=== PATIENT | female | born 1945 | race Caucasian/White ===

== ENCOUNTER 2022-12-29 15:31 | Emergency (ER) | payer BC, OTHER ==
--- OUTSIDE RECORDS SUMMARY | 2022-12-29 15:34 | XMS REPORT | Clinical Summary ---
:1945 Author Organization [facility] Address [address] [place] [address] Care Team Providers Name Role Phone Steven Vickers MD Primary Care Provider Steven Vickers MD Unavailable Tai [employer] Unavailable Ruperto Mary MD Unavailable Tasha Slater MD Unavailable [phone] Allergies No known active allergies Medications Medication Sig Dispensed Refills Start Date End Date Status lisinopril Take 1 tablet 0 09/20/2022 Acti ve (PRINIVIL,ZESTRIL) 20 mg (20 mg) by tablet mouth daily. rosuvastatin (CRESTOR) 10 Take 1 tablet 0 08/21/2022 Active mg tablet (10 mg) by mouth daily. hydroCHLOROthiazide Take 1 tablet 0 07/04/2008 Active (HYDRODIURIL) 25 mg tablet (25 mg) by mouth daily. 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 10/05/2022 Orders Only Ophthalmology PathDeepti forbes PA 10/05/2022 Travel 10/02/2022 NPR Patient Access Steven Vickers Services MD 09/14/2022 Travel after 12/29/2021 Surgical History Surgery Date Site/Laterality Comments LASIK 07/30/1993 - 07/29/1994 Right Social History Tobacco Use Types Packs/Day Years Used Date Smoking Tobacco: Never Tobacco Cessation: Counseling Given: Not Answered Sex Assigned at Date Recorded Female 09/11/2022 12:47 PM [employer] Job Start Date Occupation Industry Not on file Not on file Not on file Obstetrics History Last Filed Vital Signs Vital Sign Reading Time Taken Comments Blood Pressure 146/77 10/05/2022 7:50 AM [employer] Pulse 105 10/05/2022 7:50 AM [employer] Temperature - - Respiratory Rate 18 10/05/2022 7:50 AM [employer] Oxygen Saturation 97% 10/05/2022 7:50 AM [employer] Inhaled Oxygen Concentration - - Weight 58 kg (127 lb 13.9 oz) 10/05/2022 7:44 AM [employer] Height 168 cm (5' 6.14") 10/05/2022 7:44 AM [employer] Body Mass Index 20.55 10/05/2022 7:44 AM [employer] Plan of Treatment Date Type Specialty Care Team Description 02/08/2023 Appointment Ophthalmology Steven Vickers MD [address] [place], [place] [address] (Wo rk) Health Maintenance Due Date Last Done Comments COVID-19 Vaccination (5 - Moderna 02/14/2022 12/20/2021, , series) 09/18/2020, Additional history exists Procedures Procedure Name Priority Date/Time Associated Comments Diagnosis [facility]BM/ANTERIOR SEGMENT Routine 10/05/2022 9:44 AM 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 B-SCAN ULTRASOUND - Routine 10/05/2022 9:34 AM Neoplasm of Re sults for this OS - LEFT EYE [employer] uncertain behavior procedur e are in of choroid the results section. FUNDUS PHOTOS - OU - Routine 10/05/2022 8:43 AM Nevus of choro id Results for this BOTH EYES [employer] <Left side> procedure are i n the results section. OCT, RETINA - OU - Routine 10/05/2022 8:43 AM Nevus of choroid Results for this BOTH EYES [employer] <Left side> procedure are i n the results section. after 12/29/2021 Results UBM/Anterior Segment - OS - Left Eye (10/05/2022 9:44 AM [employer]) Specimen (Source) Anatomical Location Collection Method / Collectio n Time Received Time / Laterality Volume Steven Mancilla MD - 10/05/2022 9:44 AM [employer] Quality was good. Structures assessed: cornea, iris, angle, ciliary body, pars plana. Anterior chamber was normal. Findings included normal observations. Notes No ciliary body or iris mass Steven Vickers MD OPHTHALMOLOGY IMG ORDERABLES B-Scan Ultrasound - OS - Left Eye (10/05/2022 9:34 AM [employer]) Specimen (Source) Anatomical Location Collection Method / Collectio n Time Received Time / Laterality Volume Steven Mancilla MD - 10/05/2022 9:34 AM [employer] Quality was good. A-scan performed: non-quantitative. Anterior chamber was normal. Vitreous: mild echogenic debris. The mass shape was dome-shaped. Basal dimension: 7.1 x 9.9 mm. Apical di mension: 2.6 mm. Findings included indeterminate melanocytic lesion. Steven Vickers MD OPHTHALMOLOGY IMG ORDERABLES Fundus Photos - OU - Both Eyes (10/05/2022 8:43 AM [employer]) Specimen (Source) Anatomical Location Collection Method / Collectio n Time Received Time / Laterality Volume Steven Mancilla MD - 10/05/2022 9:45 AM [employer] Right Eye Periphery findings include normal observ ations. Notes Pigmented lesion left eye with possible interval change from 2013 [facility] photos Steven Vickers MD OPHTHALMOLOGY IMG ORDERABLES OCT, Retina - OU - Both Eyes (10/05/2022 8:43 AM [employer]) Specimen (Source) Anatomical Location Collection Method / Collectio n Time Received Time / Laterality Volume Steven Mancilla MD - 10/05/2022 9:46 AM [employer] Right Eye Findings include normal foveal contour. Left Eye Findings include normal foveal contour. Steven Vickers MD OPHTHALMOLOGY IMG ORDERABLES after 12/29/2021 Insurance Payer Benefit Plan / Subscriber ID Effective Dates Phone Addre ss Type Group [employer] [place]PO POS [id number] 2020-Present [address] [place] [address] Care Teams Body Masker Relationship Specialty Start Date End Date Steven Vickers MD PCP - General 09/29/[address] [place] [id number] Ruperto Mary, PCP - External Primary Internal Medicine 08/30 01/19 MD Care Provider [address] [place] [phone] Tasha Slater PCP - External Referring Ophthalmology 09/14/22 MD [facility] [place] [phone] Steven Vickers MD Physician 10/06/[address] [place] [id number] Tai Chi, [employer] 10/06/15 [facility] [address] [facility] [address] [place] [address]
--- OUTSIDE RECORDS SUMMARY | 2022-12-29 15:37 | XMS REPORT | Continuity of Care Document ---
:1945 Author Organization [facility] t Address [address] [facility] [address] [place] [address] Care Team Providers Name Role Phone [phone] Primary Care Physician Unavailable SYSTEM, PROVIDER NOT IN Attending Clinician Unavailable REESE GIL Attending Clinician Unavailable KELVIN MERCHANT Attending Clinician Unavailable RUPERTO MAYR Attending Clinician Unavailable FREDY ESPINOSA Attending Clinician Unavailable Fredy Espinosa MD Attending Clinician Deepti Godfrey Attending Clinician Usman GEORGE, CAHY, Ruperot Martinez Attending Clinician [phone] JUJU HOLDER Attending Clinician Unavailable Lauren Roberts Attending Clinician Unavailable Gabrielle Hickey MD Attending Clinician Milagros Salomon MD Attending Clinician Gallo GEORGE, Juju Attending Clinician ARTIE RUFF Attending Clinician Unavailable Shady GEORGE, Arnoldo Flores Attending Clinician [phone] RONY MENDES Admitting Clinician Unavailable Alejandra Lauren S Admitting Clinician Unavailable Payers Payer Name Policy Type Policy Number Effective Date Expiration Date S [place] MEDICARE PART A [id number] 2012 00:00:00 BCBS FED [id number] 2015 00:00:00 OUT OF STATE BCBS [id number] 2015 - PPO - BCBS 00:00:00 CVCP-BCBS [id number] [place] POS [id number] 2020 00:00:00 Problems Condition Condition Condition Status Onset Resolution Last Treating Co mments Source Name Details Category Date Date Treatment Clinician Date Hypercalce Hypercalce Disease Active Last B camron marcio marcio 8-10 [facility] 00:00: t & Plan: of 00 Formattin Medicin g of this e note might be different from the original. History:A symptomat ic todayAsse ssment/Pl an:- Recheck Tiffany + ICa + PTH Lung Lung Disease Active Overview: [facility] nodule nodule 02-24 [facility] 00:00: g of this of 00 note Medicin might be e different from the original. 5-6 mm. Low riskLast Assessmen t & Plan: Formattin g of this note might be different from the original. History:5 -6 cm nodule incidenta lly identifie d during coronary CT. No respirato ry issues. Confirmed no risk factors for lung cancer Assessmen t/Plan:Di scussed options for monitorin g. Pt opting for repeat CT in 12 months. 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 History:R eports she was diagnosed with possible gout after acute flare earlier this month. Reports improveme nt with steroids, followed by return of mild symptoms. To see Rheum in 1 week. Assessmen t/Plan:- Discussed getting Uric Acid with labs ordered today Thyroid Thyroid Disease Active [facility] nodule nodule 02-24 [facility] 00:00: t & Plan: of 00 Formattin Medicin g of this e note might be different from the original. History:I ncidental ly noted 1.8cm nodule on thyroid, while having coronary calcium scan done. Reports no hypo- or hyper-thy roidism symptoms. No goiter.As sessment/ Plan:- Check TSH- Check Free T4- Endo referral placed Lung Lung Disease Active [facility] nodule nodule 02-24 [facility] 00:00: t & Plan: of 00 History:5 Medicin -6 cm e nodule incidenta lly identifie d during coronary CT. No respirato ry issues. Confirmed no risk factors for lung cancer Assessmen t/Plan:Di scussed options for monitorin g. Pt opting for repeat CT in 12 months. 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 Reports improveme nt with steroids, followed by return of mild symptoms. To see Rheum in 1 week. Assessmen t/Plan:- Discussed getting Uric Acid with labs ordered today Toe pain, Toe pain, Disease Active [facility] left left 01-19 [place] 00:00: of 00 Medicin e Abnormal Abnormal Disease Active [facility] r EKG EKG 8- [facility] 00:00: t & Plan: of 00 Formattin Medicin g of this e note might be different from the original. - Stress + echo Atypical Atypical Disease Active [facility] r chest pain chest pain 8-09 [facility] 00:00: t & Plan: of 00 Formattin Medicin g of this e note might be different from the original. - EKG today: showed non-speci fic QRS widening and poor R-wave progressi on. - Labs today - Stress test ordered. Multiple Multiple Disease Active [facility] r nevi nevi 02-22 [place] 00:00: of 00 Medicin e Keratosis Keratosis Disease Active [facility] seborrheic seborrheic 02-22 [facility] 00:00: of 00 Medicin e Lentigines Lentigines Disease Active [facility] 02[facility]22 [place] 00:00: of 00 Medicin e Cutaneous Cutaneous Disease Active [facility] tag tag 02-22 [place] 00:00: of 00 Medicin e Keratosis Keratosis Disease Active [facility] seborrheic seborrheic 02-22 [facility] 00:00: of 00 Medicin e Routine Routine Disease Active Overview: [facility] adult adult 07-31 [facility] [employer] [place] [facility] 00:00: g of this of mainanc note Me dicin e e might be e different from the original. Last Annual Physical: 05/2021 - Healthy Lifestyle : Dietary: Doing intermitt ent fasting. Losing weight. Exercise: - Colon Cancer Screening : [place] py 06/2011 was normal; Cologuard negative 06/2021, repeat in 2023- Breast Cancer Screening : - Mammogram : negative 05/2021 - CBE: negative 05/2021- Cervical Cancer Screening : Pap normal 03/2013. No further.- Skin Cancer Preventio n: Followed by Dr. Salomon- Osteoporo sis Screening : Bone Density normal 01/2013- Vaccines: - Flu: received 04/2022 - Pneumovax : done 02/2013 - Prevnar: received 04/2015 - Tetanus: done 02/2013 - Zoster: received 12/2020 - HIV Status Testing (<65): n/a - Hep C Testing (born 1943-65): negative 04/2015 Hypertensi Hypertensi Disease Active Last Jonas lyon on on 02-28 [facility] 00:00: t & Plan: of 00 Formattin Medicin g of this e note might be different from the original. 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 Reports side effects from statins, occassion ally - Change to crestor; if still with side effects, consider zetia Back pain Back pain Disease Active 2005-07 Last [facility] 0-11 [facility] 00:00: t & Plan: of 00 Formattin Medicin g of this e note might be different from the original. Reports it has not been worked up in the past but has been a chronic problem - xray today - Discussed PMR or PT as a possible treatment - Refilled NSAIDs Seasonal Seasonal Disease Active [facility] allergies allergies Emily ege of Medicin e Allergies, Adverse Reactions, Alerts Allergy Allergy Status Severity Reaction(s) Onset Inactive Treating Comm ents Source Name Type Date Date Clinician NO KNOWN Allergy Active [facility] Family History Family Member Diagnosis Comments Start Date Stop Date Source Natural father Hearing loss [facility] Natural father Hyperlipidemia [facility] Natural father Hypertension [facility] Maternal grandmother Asthma [facility] Natural mother Alcohol abuse [facility] Natural mother Cancer [facility] Natural mother Heart disease [facility] Social History Social Habit Start Date Stop Date Quantity Comments Source History SDOH [facility] History SDOH [facility] Std [facility] Cent[facility] r Drinks History SDOH [facility] Alcohol Binge Medical [address] [facility] Exposure to Not sure [facility] brianne of SARS-CoV-2 Medicine (event) Tobacco use and 2022-06-16 2022-06-16 Smokeless tobacco [facility] of exposure 00:00:00 00:00:00 non-user Medicine Alcohol intake 2020-02-05 2020-02-05 [facility]er [facility] (finding) Alcohol Comment 2020-02-05 2020-02-[address] [facility] 00:00:00 00:00:00 [facility] Center Sex [birth year] [facility] 00:[facility]00 00:00:00 [place] [facility] Smoking Status Start Date Stop Date Source Never smoked tobacco [facility] [place] [facility] Medications Ordered Filled Start Stop Current Ordering Indication Dosage Frequency Signature Comments Components Source Medication Medication Date Date Medication? Clinician (SIG) Name Name Ascorbic Yes Take by [facility] Acid 5-05 mouth. College (VITAMIN C) 15:24: of 500 MG CAPS 47 Medicin e Menaquinone 0 Yes Take by [facility] -7 (VITAMIN 5-05 mouth. [facility] K2 OR) 15:24: of 47 Medicin e MAGNESIUM 2022-0 Yes Take by [facility] OR 5-05 mouth. [place] 15:24: of 47 Medicin e Zinc 50 MG 2022-0 Yes Take by [facility] CAPS 5-05 mouth. [place] 15:24: of 47 Medicin e Cholecalcif 2022-0 Yes Take by [facility] nigel (D3 5-05 mouth. College 5000) 125 15:24: of MCG (5000 47 Medicin [place]) CAPS e Cyanocobala 2022-0 Yes Take by [facility] min 5-05 mouth. [place] (VITAMIN B 15:21: of 12 OR) 55 Medicin e guaiFENesin 2022-0 Yes [id number] 5mL Take 5 mL Bon -Codeine 5-05 by mouth [place] (GUAIFENESI 00:00: every 4 of N AC) 00 hours as Medicin 100-10 needed for e MG/5ML Cough. liquid benzonatate 0 Yes [id number] 100mg Take 1 Bon (TESSALON) 5-05 capsule by [facility] 100 mg 00:00: mouth 3 of capsule 00 times Medicin daily as e needed for Cough. Fluticasone 0 Yes 2{puff} Inhale 2 [facility] -Salmeterol 5-05 Puffs by Emily abbott (ADVAIR 00:00: mouth two of HFA) 115-21 00 times Medicin MCG/ACT daily. e AERO rosuvastati Yes TAKE 1 [facility] (CRESTOR) 4-25 TABLET BY Col lege 10 MG 00:00: MOUTH of tablet 00 DAILY WITH Medicin EVENING e MEAL lisinopril 2022-0 Yes 20mg Take 1 Unive rs (PRINIVIL,Z 2-22 tablet (20 it y of ESTRIL) 20 00:00: mg) by [place] mg tablet 00 mouth MD daily. [facility] rosuvastati 2022-0 Yes 10mg Take 1 Univ ers n (CRESTOR) 1-23 tablet (10 it y of 10 mg 00:00: mg) by [place] tablet 00 mouth MD daily. [facility] lisinopril 2021-07 Yes TAKE 1 [facility] (PRINIVIL, 1-28 TABLET BY Emily MALDONADO) 20 00:00: MOUTH of MG tablet 00 DAILY Medicin e Aspirin 81 2021-07 Yes Take by [facility] MG tablet 1-18 mouth. [place] 10:37: of 28 Medicin e Aspirin 81 2021-07 Yes Take by [facility] MG tablet 1-18 mouth. [place] 10:37: of 28 Medicin e Cyanocobala 2021-07 Yes Take by [facility] min 1-18 mouth. [place] (VITAMIN B 10:36: of 12 OR) 44 Medicin e lisinopril Yes TAKE 1 [facility] (PRINIVIL, 7-25 TABLET BY Emily SERRANORIPaulino) 20 00:00: MOUTH of MG tablet 00 DAILY Medicin e hydrochloro Yes TAKE 1 [facility] thiazide 6-29 TABLET BY Karina e (HYDRODIURI 00:00: MOUTH of L) 25 MG 00 EVERY DAY Medici n tablet IN MORNING e hydrochloro Yes TAKE 1 [facility] thiazide 6-29 TABLET BY [place] e (HYDRODIURI 00:00: MOUTH of L) 25 MG 00 EVERY DAY Medici n tablet IN MORNING e rosuvastati Yes TAKE 1 [facility] (CRESTOR) 4-01 TABLET BY Col lege 10 MG 00:00: MOUTH of tablet 00 DAILY WITH Medicin EVENING e MEAL Aspirin 81 2020-07 Yes Take by [facility] MG tablet 1-12 mouth. [place] 10:27: of 50 Medicin e Cyanocobala 2020-07 Yes Take by [facility] min 1-12 mouth. [place] (VITAMIN B 10:27: of 12 OR) 50 Medicin e lisinopril 2020-07 Yes TAKE 1 [facility] (PRINIVIL, 1-01 TABLET BY Emily abbott ZESTRIL) 20 00:00: MOUTH of MG tablet 00 DAILY Medicin e hydrochloro Yes TAKE 1 [facility] thiazide 5-28 TABLET BY Colleg e (HYDRODIURI 00:00: MOUTH of L) 25 MG 00 EVERY DAY Medici n tablet IN MORNING e rosuvastati Yes TAKE 1 [facility] (CRESTOR) 2-22 TABLET BY Col lege 10 MG 00:00: MOUTH of tablet 00 DAILY Medicin e Aspirin 2020-0 Yes Take by [facility] (ASPIR-81) 9-18 mouth. [place] 81 MG TBEC 13:49: of 30 Medicin e Cyanocobala 2020-0 Yes Take by [facility] adonis min 9-18 mouth. [place] (VITAMIN B 13:49: of 12 OR) 30 Medicin e Aspirin 2020-0 Yes Take by [facility] (ASPIR-81) 8-10 mouth. [place] 81 MG TBEC 18:51: of 52 Medicin e Cyanocobala 2020-0 Yes Take by [facility] adonis min 8-10 mouth. [place] (VITAMIN B 18:51: of 12 OR) 52 Medicin e Aspirin 2020-0 Yes Take by [facility] (ASPIR-81) 8-07 mouth. [place] 81 MG TBEC 13:16: of 58 Medicin e Cyanocobala 2020-0 Yes Take by [facility] adonis min 8-07 mouth. [place] (VITAMIN B 13:16: of 12 OR) 58 Medicin e Aspirin 2020-0 Yes Take by [facility] (ASPIR-81) 8-06 mouth. [place] 81 MG TBEC 15:59: of 33 Medicin e Cyanocobala 2020-0 Yes Take by [facility] adonis min 8-06 mouth. [place] (VITAMIN B 15:59: of 12 OR) 33 Medicin e predniSONE 2020-0 Yes [id number] 20mg Take 1 Tab [facility] (DELTASONE) 7-17 by mouth Emily ege 20 MG 00:00: daily. of tablet 00 Medicin e predniSONE 2020-0 Yes [id number] 20mg Take 1 Tab [facility] (DELTASONE) 7-17 by mouth [facility] ege 20 MG 00:00: daily. of tablet 00 Medicin e predniSONE 2020-0 Yes [id number] 20mg Take 1 Tab [facility] (DELTASONE) 7-17 by mouth Emily ege 20 MG 00:00: daily. of tablet 00 Medicin e predniSONE 2020-0 2020- No [id number] 20mg Take 1 Tab [facility] (DELTASONE) 7-17 -18 by mouth Col lege 20 MG 00:00: 00:00 daily. of tablet 00 :00 Medicin e hydroCHLORO 2020-0 Yes 25mg QD Take [address] thiazide 7-09 by mouth [facility]ukes (HYDRODIURI 11:30: daily. Medi tiffany L) 25 MG 54 Center tablet rosuvastati 2020-0 Yes 10mg QD Take [address] [facility] (CRESTOR) 7-09 by mouth Luke s 10 MG 11:30: daily. Medical tablet 54 Center lisinopriL 2020-0 Yes 20mg QD Take [address] (PRINIVIL,Z 7-09 by mouth Luke s ESTRIL) 20 11:30: daily. Medic al MG tablet 54 Center coenzyme 2020-0 Yes 200mg QD Take [address] Q10 200 mg 7-09 mg by [facility]ukes capsule 11:30: mouth Medical 54 daily. [place] cyanocobala 2020-0 Yes 2000ug QD Take 2,[address] min 2000 7-09 mcg by Lukes MCG tablet 11:30: mouth Medica l 54 daily. [place] aspirin 81 2020-0 Yes 81mg QD Take [address] MG EC 7-09 by mouth [facility]ukes tablet 11:30: daily. Medical 54 [place] metoprolol 2020-0 Yes 50mg Take [address] tartrate 7-09 by mouth [facility]ukes (LOPRESSOR) 11:30: once Take M edical 50 MG 54 1 BID the Center tablet day before CT of heart and 1 tablet the morning of CT. . hydroCHLORO 2020-0 Yes 25mg QD Take [address] thiazide 7-09 by mouth [facility]ukes (HYDRODIURI 11:30: daily. Medi tiffany L) 25 MG 54 Center tablet rosuvastati 2020-0 Yes 10mg QD Take [address] n (CRESTOR) 7-09 by mouth Luke s 10 MG 11:30: daily. Medical tablet 54 Center lisinopriL 2020-0 Yes 20mg QD Take [address] (PRINIVIL,Z 7-09 by mouth Luke s ESTRIL) 20 11:30: daily. Medic al MG tablet 54 Center coenzyme 2020-0 Yes 200mg QD Take [address] Q10 200 mg 7-09 mg by [facility]ukes capsule 11:30: mouth Medical 54 daily. [place] cyanocobala 2020-0 Yes 2000ug QD Take 2,[address] min 2000 7-09 mcg by Lukes MCG tablet 11:30: mouth Medica l 54 daily. [place] aspirin 81 2020-0 Yes 81mg QD Take [address] MG EC 7-09 by mouth [facility]ukes tablet 11:30: daily. [address] metoprolol 2020-0 Yes 50mg Take [address] tartrate 02-04 by mouth [facility] (LOPRESSOR) 11:30: once Take M edical 50 MG 54 1 BID the Center tablet day before CT of heart and 1 tablet the morning of CT. . Aspirin 2020-0 Yes Take by [facility] (ASPIR-81) 01-28 mouth. College 81 MG TBEC 18:17: of 39 Medicin e Cyanocobala 2020-0 Yes Take by [facility] 01-28 mouth. College (VITAMIN B 18:17: of 12 OR) 39 Medicin e metoprolol 2020-0 Yes [id number] On the day [facility] (LOPRESSOR) 01-22 prior to Emily ege 50 MG 00:00: the CT of tablet 00 scan take Medicin 50 mg in e AM, 50 mg in PM. On the day of the CT, take 50 mg in the morning. metoprolol 2020-0 Yes [id number] On the day [facility] (LOPRESSOR) 01-22 prior to Emily ege 50 MG 00:00: the CT of tablet 00 scan take Medicin 50 mg in e AM, 50 mg in PM. On the day of the CT, take 50 mg in the morning. metoprolol 2020-0 Yes [id number] On the day [facility] (LOPRESSOR) 01-22 prior to Emily ege 50 MG 00:00: the CT of tablet 00 scan take Medicin 50 mg in e AM, 50 mg in PM. On the day of the CT, take 50 mg in the morning. metoprolol 2020-0 Yes [id number] On the day [facility] (LOPRESSOR) 01-22 prior to Emily ege 50 MG 00:00: the CT of tablet 00 scan take Medicin 50 mg in e AM, 50 mg in PM. On the day of the CT, take 50 mg in the morning. metoprolol 2020-0 Yes [id number] On the day [facility] (LOPRESSOR) 01-22 prior to Emily ege 50 MG 00:00: the CT of tablet 00 scan take Medicin 50 mg in e AM, 50 mg in PM. On the day of the CT, take 50 mg in the morning. metoprolol 2020-0 Yes [id number] On the day [facility] (LOPRESSOR) 01-22 prior to Emily ege 50 MG 00:00: the CT of tablet 00 scan take Medicin 50 mg in e AM, 50 mg in PM. On the day of the CT, take 50 mg in the morning. metoprolol 2020-0 Yes [id number] On the day [facility] (LOPRESSOR) 01-22 prior to Emily ege 50 MG 00:00: the CT of tablet 00 scan take Medicin 50 mg in e AM, 50 mg in PM. On the day of the CT, take 50 mg in the morning. metoprolol 2020-0 Yes [id number] On the day [facility] (LOPRESSOR) 01-22 prior to Emily ege 50 MG 00:00: the CT of tablet 00 scan take Medicin 50 mg in e AM, 50 mg in PM. On the day of the CT, take 50 mg in the morning. Multiple 2020-0 Yes 1{tbl} Take 1 [facility] Vitamins-Mi 6-15 tablet by Col lege nerals 00:00: mouth of (CENTRUM 00 daily. Medicin ADULTS) e TABS Multiple 2020-0 Yes 1{tbl} Take 1 [facility] Vitamins-Mi 6-15 tablet by Col lege nerals 00:00: mouth of (CENTRUM 00 daily. Medicin ADULTS) e TABS Multiple 2020-0 Yes 1{tbl} Take 1 [facility] Vitamins-Mi 6-15 tablet by Col lege nerals 00:00: mouth of (CENTRUM 00 daily. Medicin ADULTS) e TABS Multiple 2020-0 Yes 1{tbl} Take 1 [facility] Vitamins-Mi 6-15 tablet by Col lege nerals 00:00: mouth of (CENTRUM 00 daily. Medicin ADULTS) e TABS Multiple 2020-0 Yes 1{tbl} Take 1 [facility] Vitamins-Mi 6-15 tablet by Col lege nerals 00:00: mouth of (CENTRUM 00 daily. Medicin ADULTS) e TABS Multiple 2020-0 Yes 1{tbl} Take 1 [facility] Vitamins-Mi 6-15 tablet by Col lege nerals 00:00: mouth of (CENTRUM 00 daily. Medicin ADULTS) e TABS Multiple 2020-0 Yes 1{tbl} Take 1 [facility] Vitamins-Mi 6-15 tablet by Col lege nerals 00:00: mouth of (CENTRUM 00 daily. Medicin ADULTS) e TABS Multiple 2020-0 Yes 1{tbl} Take 1 [facility] Vitamins-Mi 6-15 tablet by Col lege nerals 00:00: mouth of (CENTRUM 00 daily. Medicin ADULTS) e TABS hydrochloro 2020-0 Yes TAKE 1 [facility] thiazide 4-06 TABLET BY Colleg e (HYDRODIURI 00:00: MOUTH of L) 25 MG 00 EVERY DAY Medici n tablet e hydrochloro 2020-0 Yes TAKE 1 [facility] thiazide 4-06 TABLET BY Colleg [facility] (HYDRODIURI 00:00: MOUTH of L) 25 MG 00 EVERY DAY Medici n tablet e hydrochloro 2020-0 Yes TAKE 1 [facility] thiazide 4-06 TABLET BY Colleg [facility] (HYDRODIURI 00:00: MOUTH of L) 25 MG 00 EVERY DAY Medici n tablet e hydrochloro 2020-0 Yes TAKE 1 [facility] thiazide 4-06 TABLET BY Colleg [facility] (HYDRODIURI 00:00: MOUTH of L) 25 MG 00 EVERY DAY Medici n tablet e hydrochloro 2020-0 Yes TAKE 1 [facility] thiazide 4-06 TABLET BY Colleg [facility] (HYDRODIURI 00:00: MOUTH of L) 25 MG 00 EVERY DAY Medici n tablet e rosuvastati 2020-0 Yes 10mg Take 1 Tab [facility] n (CRESTOR) 1-15 by mouth Emily ege 10 MG 00:00: daily. of tablet 00 Medicin e rosuvastati 2020-0 Yes 10mg Take 1 Tab [facility] n (CRESTOR) 1-15 by mouth Emily ege 10 MG 00:00: daily. of tablet 00 Medicin e rosuvastati 2020-0 Yes 10mg Take 1 Tab [facility] n (CRESTOR) 1-15 by mouth Emily ege 10 MG 00:00: daily. of tablet 00 Medicin e rosuvastati 2020-0 Yes 10mg Take 1 Tab [facility] n (CRESTOR) 1-15 by mouth Emily ege 10 MG 00:00: daily. of tablet 00 Medicin e rosuvastati 2020-0 Yes 10mg Take 1 Tab [facility] n (CRESTOR) 1-15 by mouth Emily ege 10 MG 00:00: daily. of tablet 00 Medicin e Aspirin 2019-0 Yes Take by [facility] (ASPIR-81) 8-09 mouth. College 81 MG TBEC 19:39: of 51 Medicin e Cyanocobala 2019-0 Yes Take by [facility] adonis min 03-07 mouth. [place] (VITAMIN B 19:39: of 12 OR) 51 Medicin e lisinopril 2019-0 Yes 20mg Take 1 Tab [facility] (PRINIVIL, 809 by mouth Colle ge ZESTRIL) 20 00:00: daily. of MG tablet 00 Medicin e Coenzyme 2019-0 Yes 1{tbl} Take 1 Tab [facility] Q-10 200 MG 03-07 by mouth Emily ege CAPS 00:00: daily. of 00 Medicin e lisinopril 2018-0 Yes 20mg Take 1 Tab [facility] (PRINIVIL, 8 by mouth Colle ge ZESTRIL) 20 00:00: daily. of MG tablet 00 Medicin e Coenzyme 2019-0 Yes 1{tbl} Take 1 Tab [facility] Q-10 200 MG 03-07 by mouth Emily ege CAPS 00:00: daily. of Medicin e lisinopril 2019-0 Yes 20mg Take 1 Tab [facility] (PRINIVIL, 03-07 by mouth Colle ge ZESTRIL) 20 00:00: daily. of MG tablet 00 Medicin e Coenzyme 2019-0 Yes 1{tbl} Take 1 Tab [facility] Q-10 200 MG 03-07 by mouth Emily ege CAPS 00:00: daily. of 00 Medicin e lisinopril 2019-0 Yes 20mg Take 1 Tab [facility] (PRINIVIL, 09 by mouth Colle ge ZESTRIL) 20 00:00: daily. of MG tablet 00 Medicin e Coenzyme 2019-0 Yes 1{tbl} Take 1 Tab [facility] Q-10 200 MG 03-07 by mouth Emily ege CAPS 00:00: daily. of 00 Medicin e Coenzyme 2019-0 Yes 1{tbl} Take 1 Tab [facility] Q-10 200 MG 8 by mouth Emily ege CAPS 00:00: daily. of 00 Medicin e lisinopril 2019-0 Yes 20mg Take 1 Tab [facility] (PRINIVIL, 8-09 by mouth Colle ge ZESTRIL) 20 00:00: daily. of MG tablet 00 Medicin e Coenzyme 2019-0 Yes 1{tbl} Take 1 Tab [facility] Q-10 200 MG 8-09 by mouth Emily ege CAPS 00:00: daily. of 00 Medicin e rosuvastati Yes 10mg Take 1 Tab Bon n (CRESTOR) 8-09 by mouth Emily ege 10 MG 00:00: daily. of tablet 00 Medicin e Coenzyme Yes 1{tbl} Take 1 Tab [facility] Q-10 200 MG 8-09 by mouth Emily ege CAPS 00:00: daily. of 00 Medicin e Coenzyme Yes 1{tbl} Take 1 Tab [facility] Q-10 200 MG 8-09 by mouth Emily ege CAPS 00:00: daily. of 00 Medicin e lisinopril Yes 20mg Take 1 Tab [facility] (PRINIVIL, 8-09 by mouth Colle ge ZESTRIL) 20 00:00: daily. of MG tablet 00 Medicin e Coenzyme Yes 1{tbl} Take 1 Tab [facility] Q-10 200 MG 8-09 by mouth Emily ege CAPS 00:00: daily. of 00 Medicin e simvastatin 2019- No TAKE 1 [facility] (ZOCOR) 20 6-24 08-09 TABLET BY Col lege MG tablet 00:00: 00:00 MOUTH of 00 :00 EVERY Medicin EVENING. e lisinopril 2019- No [id number] 40mg TAKE 1 TAB [facility] (PRINIVIL, 5-16 08-09 BY MOUTH Emily ege ZESTRIL) 40 00:00: 00:00 DAILY. of MG tablet 00 :00 TAKE 20MG Medic in DAILY FOR e 2 WEEKS, THEN INCREASE TO 40MG hydrochloro Yes TAKE 1 [facility] thiazide 1-03 TABLET BY Colleg e (HYDRODIURI 00:00: MOUTH of L) 25 MG 00 EVERY DAY Medici n tablet e ibuprofen 2015-07 2019- No [id number] 600mg Take 1 Tab [facility] (MOTRIN) 0-25 08-09 by mouth Colleg e 600 MG 00:00: 00:00 every 8 of tablet 00 :00 hours as Medicin needed for e Pain. hydrocodone 2019- No [id number] 1{tbl} Take 1 Tab [facility] -acetaminop 3-09 08-09 by mouth Col lege hen (NORCO) 00:00: 00:00 every 4 of 5-325 mg 00 :00 hours as Medicin tablet needed for e Pain. carisoprodo 2019- No 350mg Take 1 Tab Bon l (SOMA) 11-15 by mouth Colleg e 350 MG 00:00: 00:00 every 8 of tablet 00 :00 hours as Medicin needed for e Muscle spasms. hydroCHLORO 2007-07 Yes 25mg Take 1 Univ ers thiazide 2-06 tablet (25 ity o f (HYDRODIURI 00:00: mg) by Mellisa Bob) 25 mg 00 mouth MD tablet daily. [facility] Immunizations Ordered Immunization Filled Immunization Date Status Commen ts Source Name Name Moderna Bivalent 2022-06-16 [address] [facility] Covid Booster 00:00:00 of Medicine Moderna Bivalent 2022-06-16 [address] [facility] Covid Vaccine 00:00:00 of Medicine Influenza Hd 2022-05-29 Completed [facility] [facility] [employer] 00:00:00 of Medicine Influenza Hd 2022-05-29 Completed [facility] ge 00:00:00 of Medicine Moderna .25mL BOOSTER 2021-12-20 Completed [facility] SARS-CoV-2 00:00:00 of Medicine Vaccination Moderna .25mL BOOSTER 2021-12-20 Completed [facility] SARS-CoV-2 00:00:00 of Medicine Vaccination Moderna .25mL BOOSTER 2021-06-13 Completed [facility] SARS-CoV-2 00:00:00 of Medicine Vaccination Moderna .25mL BOOSTER 2021-06-13 Completed [facility] SARS-CoV-2 00:00:00 of Medicine Vaccination Influenza Hd 2021-06-10 [facility] Influenza Hd 2021-06-10 Completed [facility] 00:00:00 of Medicine Influenza Hd 2021-06-10 Completed [facility] 00:00:00 of Medicine Zoster Recombinant 2021-01-26 Completed [facility] 00:00:00 of Medicine Zoster Recombinant 2021-01-26 Completed [facility] 00:00:00 of Medicine Zoster Recombinant 2021-01-26 Completed [facility] 00:00:00 of Medicine Zoster Recombinant 2021-01-19 Completed [facility] 00:00:00 of Medicine Zoster Recombinant 2021-01-19 Completed [facility] [employer] 00:00:00 of Medicine Zoster Recombinant 2021-01-19 Completed [facility] 00:00:00 of Medicine Moderna SARS-CoV-2 2020-09-18 Completed [facility] Vaccination 00:00:00 of Medicine Moderna .5mL 2020-09-18 Completed [facility] SARS-CoV-2 00:00:00 of Medicine Vaccination Moderna .5mL 2020-09-18 Completed [facility] SARS-CoV-2 00:00:00 of Medicine Vaccination Moderna SARS-CoV-2 2020-08-21 Completed [facility] [employer] Vaccination 00:00:00 of Medicine Moderna .5mL 2020-08-21 Completed [facility] SARS-CoV-2 00:00:00 of Medicine Vaccination Moderna .5mL 2020-08-21 Completed [facility] SARS-CoV-2 00:00:00 of Medicine Vaccination Influenza Hd 2020-04-16 Completed [facility] 00:00:00 of Medicine Influenza Hd 2020-04-16 Completed [facility] 00:00:00 of Medicine Influenza Hd 2020-04-16 Completed [facility] 00:00:00 of Medicine Influenza Hd 2020-04-16 Completed [facility] 00:00:00 of Medicine Influenza Hd 2016-05-09 Completed [facility] 00:00:00 of Medicine Influenza Hd 2016-05-09 Completed [facility] 00:00:00 of Medicine Influenza Hd 2016-05-09 Completed [facility] 00:00:00 of Medicine Influenza Hd 2016-05-09 Completed [facility] 00:00:00 of Medicine Influenza Hd 2016-05-09 Completed [facility] 00:00:00 of Medicine Influenza Hd 2016-05-09 Completed [facility] 00:00:00 of Medicine Influenza Hd 2016-05-09 Completed [facility] 00:00:00 of Medicine Influenza Hd 2016-05-09 Completed [facility] 00:00:00 of Medicine Influenza Hd 2016-05-09 Completed [facility] 00:00:00 of Medicine Pneumococcal 2015-05-26 Completed [facility] 13-valent Conjugate 00:00:00 of Me dicine Vaccine Pneumococcal 2015-05-26 Completed [facility] 13-valent Conjugate 00:00:00 of Me dicine Vaccine Pneumococcal 2015-05-26 Completed [facility] 13-valent Conjugate 00:00:00 of Me dicine Vaccine Pneumococcal 2015-05-26 Completed [facility] 13-valent Conjugate 00:00:00 of Me dicine Vaccine Pneumococcal 2015-05-26 Completed [facility] 13-valent Conjugate 00:00:00 of Me dicine Vaccine Pneumococcal 2015-05-26 Completed [facility] 13-valent Conjugate 00:00:00 of Me dicine Vaccine Pneumococcal 2015-05-26 Completed [facility] 13-valent Conjugate 00:00:00 of Me dicine Vaccine Pneumococcal 2015-05-26 Completed [facility] 13-valent Conjugate 00:00:00 of Me dicine Vaccine Pneumococcal 2015-05-26 Completed [facility] 13-valent Conjugate 00:00:00 of Me dicine Vaccine Influenza (whole) 2014-07-06 Completed [facility] 00:00:00 of Medicine Influenza (whole) 2014-07-06 Completed [facility] 00:00:00 of Medicine Influenza (whole) 2014-07-06 Completed [facility] 00:00:00 of Medicine Influenza (whole) 2014-07-06 Completed [facility] 00:00:00 of Medicine Influenza (whole) 2014-07-06 Completed [facility] 00:00:00 of Medicine Influenza (whole) 2014-07-06 Completed [facility] 00:00:00 of Medicine Influenza (whole) 2014-07-06 Completed [facility] 00:00:00 of Medicine Influenza (whole) 2014-07-06 Completed [facility] 00:00:00 of Medicine Influenza (whole) 2014-07-06 Completed [facility] 00:00:00 of Medicine Tdap 2013-02-28 Completed [facility] 00:00:00 of Medicine Pneumococcal 2013-02-28 Completed [facility] ge Polysaccharide 00:00:00 of Medicin e Tdap 2013-02-28 Completed [facility] 00:00:00 of Medicine Pneumococcal 2013-02-28 Completed [facility] ge Polysaccharide 00:00:00 of Medicin e Tdap 2013-02-28 Completed [facility] 00:00:00 of Medicine Pneumococcal 2013-02-28 Completed [facility] Polysaccharide 00:00:00 of Medicin e Tdap 2013-02-28 Completed [facility] 00:00:00 of Medicine Pneumococcal 2013-02-28 Completed [facility] ge Polysaccharide 00:00:00 of Medicin e Tdap 2013-02-28 Completed [facility] 00:00:00 of Medicine Pneumococcal 2013-02-28 Completed [facility] Polysaccharide 00:00:00 of Medicin e Tdap 2013-02-28 Completed [facility] 00:00:00 of Medicine Pneumococcal 2013-02-28 Completed [facility] ge Polysaccharide 00:00:00 of Medicin e Tdap 2013-02-28 Completed [facility] 00:00:00 of Medicine Pneumococcal 2013-02-28 Completed [facility] ge Polysaccharide 00:00:00 of Medicin e Tdap 2013-02-28 Completed [facility] 00:00:00 of Medicine Pneumococcal 2013-02-28 Completed [facility] ge Polysaccharide 00:00:00 of Medicin e Tdap 2013-02-28 Completed [facility] 00:00:00 of Medicine Pneumococcal 2013-02-28 Completed [facility] ge Polysaccharide 00:00:00 of Medicin e Vital Signs Vital Name Observation Time Observation Value Comments Source Systolic blood 2022-12-01 20:24:00 146 mm[Hg] [facility] Diastolic blood 2022-12-01 20:24:00 86 mm[Hg] [facility] Heart rate 2022-12-01 20:24:00 118 /min [facility] Body temperature 2022-12-01 20:24:00 36.67 Micaela [facility] Respiratory rate 2022-12-01 20:24:00 16 /min [facility] Body height 2022-12-01 20:24:00 167.6 cm [facility] Body weight 2022-12-01 20:24:00 58.968 kg [facility] BMI 2022-12-01 20:24:00 20.98 kg/m2 [facility] Oxygen saturation in 2022-12-01 20:24:00 96 /min [facility] Arterial blood by [facility] Pulse oximetry Systolic blood 2022-06-16 16:37:00 132 mm[Hg] [facility] pressure Medicine Diastolic blood 2022-06-16 16:37:00 86 mm[Hg] [facility] Heart rate 2022-06-16 16:37:00 81 /min [facility] ollege of [facility] Body temperature 2022-06-16 16:37:00 36.44 Micaela [facility] Respiratory rate 2022-06-16 16:37:00 16 /min [facility] Body height 2022-06-16 16:37:00 [facility] Body weight 2022-06-16 16:37:[facility] 2022-06-16 16:37:00 21.85 [facility] Oxygen saturation in 2022-06-16 16:37:00 97 /min [facility] of Arterial blood by Medicine Pulse oximetry Systolic blood 2021-06-10 16:26:00 120 mm[Hg] [facility] of pressure Medicine Diastolic blood 2021-06-10 16:26:00 74 mm[Hg] [facility] Medicine Heart rate 2021-06-10 16:26:00 84 /min [facility] ol[facility] of [facility] Body temperature 2021-06-10 16:26:00 36.67 Micaela [facility] Body height 2021-06-10 16:26:00 167[facility]6 [facility] Body weight 2021-06-10 16:26:00 67.858 kg [facility] BMI 2021-06-10 16:26:00 24.15 [facility] Oxygen saturation in 2021-06-10 16:26:00 99 /min [facility] of Arterial blood by Medicine Pulse oximetry Systolic blood 2020-04-16 13:48:00 120 mm[Hg] [facility] of pressure Medicine Diastolic blood 2020-04-16 13:48:00 60 mm[Hg] [facility] of pressure Medicine Heart rate 2020-04-16 13:48:00 85 /min [facility] ol[facility] of [facility] Body temperature 2020-04-16 13:48:00 36.78 Micaela [facility] Respiratory rate 2020-04-16 13:48:00 18 /min [facility] Body height 2020-04-16 13:48:00 167.6 cm [facility] Body weight 2020-04-16 13:48:00 70.308 kg [facility] of Medicine BMI 2020-04-16 13:48:00 25.02 kg/m2 [facility] ollege of Medicine Oxygen saturation in 2020-04-16 13:48:00 97 /min [facility] blood by [facility] Pulse oximetry Systolic blood 2020-03-08 18:45:00 110 mm[Hg] [facility] of pressure Medicine Diastolic blood 2020-03-08 18:45:00 64 mm[Hg] [facility] pressure Medicine Heart rate 2020-03-08 18:45:00 93 /min [facility] of Medicine Respiratory rate 2020-03-08 18:45:00 16 /min [facility] Body height 2020-03-08 18:45:00 168.9 cm [facility] of Medicine Body weight 2020-03-08 18:45:00 70.308 kg [facility] of Medicine BMI 2020-03-08 18:45:00 24.64 kg/m2 [facility] of Medicine Systolic blood 2020-03-05 13:17:00 110 mm[Hg] [facility] of pressure Medicine Diastolic blood 2020-03-05 13:17:00 65 mm[Hg] [facility] of pressure Medicine Heart rate 2020-03-05 13:17:00 93 /min [facility] of Medicine Body height 2020-03-05 13:17:00 168.9 cm [facility] of Medicine Body weight 2020-03-05 13:17:00 69.854 kg [facility] of Medicine BMI 2020-03-05 13:17:00 24.48 kg/m2 [facility] of Medicine Systolic blood 2020-03-04 15:56:00 109 mm[Hg] [facility] of pressure Medicine Diastolic blood 2020-03-04 15:56:00 74 mm[Hg] [facility] pressure Medicine Heart rate 2020-03-04 15:56:00 103 /min [facility] ol[facility] of Medicine Body temperature 2020-03-04 15:56:00 36.44 [facility]ica[facility] Respiratory rate 2020-03-04 15:56:00 16 /min [facility] Body height 2020-03-04 15:56:00 168.9 cm [facility] of [facility] Body weight 2020-03-04 15:56:00 70.126 kg [facility] of [facility] BMI 2020-03-04 15:56:00 24.58 [facility]2 [facility] Oxygen saturation in 2020-03-04 15:56:00 99 /min [facility] of Arterial blood by Medicine Pulse oximetry HEIGHT 2020-02-05 00:00:00 167.6 cm WEIGHT 2020-02-05 00:00:00 68.04 kg HEIGHT 2020-02-05 00:00:00 167.6 cm WEIGHT 2020-02-05 00:00:00 68.04 kg Systolic blood 2020-01-29 18:17:00 110 mm[Hg] [facility] pressure Medicine Diastolic blood 2020-01-29 18:17:00 58 mm[Hg] [facility] Medicine Heart rate 2020-01-29 18:17:00 108 /min [facility] Body temperature 2020-01-29 18:17:00 37.06 Micaela [facility] Respiratory rate 2020-01-29 18:17:00 18 /min [facility] Body height 2020-01-29 18:17:00 168.9 [facility] Body weight 2020-01-29 18:17:00 72.576 kg [facility] BMI 2020-01-29 18:17:00 25.44 kg/m2 [facility] Oxygen saturation in 2020-01-29 18:17:00 98 /min [facility] of Arterial blood by Medicine Pulse oximetry Systolic blood 2019-03-07 19:39:00 116 mm[Hg] [facility] pressure Medicine Diastolic blood 2019-03-07 19:39:00 72 mm[Hg] [facility] Medicine Heart rate 2019-03-07 19:39:00 90 /min [facility] ollege [facility] Body temperature 2019-03-07 19:39:00 36.67 Micaela [facility] Respiratory rate 2019-03-07 19:39:00 16 /min [facility] Body height 2019-03-07 19:39:00 168.9 cm [facility] Body weight 2019-03-07 19:39:00 72.303 kg [facility] BMI 2019-03-07 19:39:00 25.34 kg/m2 [facility] Oxygen saturation in 2019-03-07 19:39:00 95 /min [facility] Arterial blood by Medicine Pulse oximetry Systolic blood 2022-10-05 13:50:34 146 mm[Hg] [facility] Diastolic blood 2022-10-05 13:50:34 77 mm[Hg] [facility] [place] [facility] Heart rate 2022-10-05 13:50:34 105 /min [facility] [place] [facility] Respiratory rate 2022-10-05 13:50:34 18 /[facility] Oxygen saturation in 2022-10-05 13:50:34 97 /min University Arterial blood by [facility] Pulse oximetry Cancer Center Body height 2022-10-05 13:44:00 168 cm Universi ty [facility] Body weight 2022-10-05 13:44:00 58 kg Universi ty [facility] BMI 2022-10-05 13:44:00 20.55 [facility] Procedures Procedure Date / Time Performing Clinician Source Performed UBM/ANTERIOR SEGMENT - OS - 2022-10-05 15:44:19 Fredy Espinosa [facility] LEFT EYE [facility] B-SCAN ULTRASOUND - OS - 2022-10-05 15:34:00 [facility]y [facility]spin[facility] LEFT EYE [facility] FUNDUS PHOTOS - OU - BOTH 2022-10-05 14:43:55 [facility] OCT, RETINA - OU - BOTH 2022-10-05 14:43:53 Fredy Espinosa [facility] EYES [facility] MODERNA BOOSTER SARS-COV-2 2021-12-20 09:57:47 B [facility] VACCINE Medicine ELECTROCARDIOGRAM COMPLETE 2019-03-07 00:00:00 Ruperto [facility] Plan of Care Planned Activity Planned Date Details Comments Source Future Scheduled 2023-03-[address] [facility] Test 00:00:00 (Season Ended) [code Medical Center = INFLUENZA VACCINE (Season Ended)] Future Scheduled 2023-02-28 DTAP/TDAP/TD [facility] 00:[facility]00 VACCINES (2 - Td or Medical Center Tdap) [code = DTAP/TDAP/TD VACCINES (2 - Td or Tdap)] Future Scheduled 2023-02-28 DTAP/TDAP/TD [facility] 00:00:00 VACCINES (2 - Td or Medical Center Tdap) [code = DTAP/TDAP/TD VACCINES (2 - Td or Tdap)] Future Scheduled 2022-12-22 COVID-19 Vaccination Uni versity of Test 04:46:56 (5 - Moderna series) Angel Galicia [code = COVID-19 Cancer Cent er Vaccination (5 - Moderna series)] Future Scheduled 2022-12-01 XR CHEST PA AND 1 Occurrences [facility] of Test 15:54:16 LATERAL [code = starting Medicine 35156-2] 12/01/2022 until 12/02/2023 Future Scheduled 2022-12-01 Screening for [facility] Col [facility]ge of Test 15:20:56 malignant neoplasm Medicine of colon (procedure) [code = 893243123] Future Scheduled 2022-12-01 Screening for [facility] of Test 15:20:56 malignant neoplasm Medicine of breast (procedure) [code = 698238721] Future Scheduled 2022-12-01 FLU VACCINE > 6 [facility] ollege of Test 15:20:56 MONTHS [code = FLU Medicine VACCINE > 6 MONTHS] Future Scheduled 2022-12-01 TETANUS SHOT (ADULT) [facility] of Test 15:20:56 [code = TETANUS SHOT Medicin e (ADULT)] Future Scheduled 2022-12-01 Fall Screen [code = [facility] of Test 15:20:56 Fall Screen] Medicine Future Scheduled 2022-07-[address] [facility] Test 00:00:00 (12+) [code = Medical Center DEPRESSION SCREENING (12+)] Future Scheduled 2022-07-30 FALLS RISK SCREENING [facility] Test 00:00:00 [code = FALLS RISK Medical C enter SCREENING] Future Scheduled 2022-06-16 Screening for [facility] of Test 11:36:16 malignant neoplasm Medicine of colon (procedure) [code = 914367171] Future Scheduled 2022-06-16 COVID-19 Vaccine (5 [employer] of Test 11:36:16 - Booster for Medicine Moderna series) [code = COVID-19 Vaccine (5 - Booster for Moderna series)] Future Scheduled 2022-06-16 Screening for [facility] of Test 11:36:16 malignant neoplasm Medicine of breast (procedure) [code = 538285093] Future Scheduled 2022-06-16 TETANUS SHOT (ADULT) [facility] of Test 11:36:16 [code = TETANUS SHOT Medicin e (ADULT)] Future Scheduled 2022-06-16 FALL SCREEN [code = [employer] [facility] [employer] [facility] Test 11:36:16 FALL SCREEN] Medicine Future Scheduled 2022-06-16 CBC W/AUTO DIFF WITH Ordered: [facility] of Test 11:22:25 PLATELETS [code = 06/16/2022 Medicine 38081-3] Future Scheduled 2022-06-16 COMPREHENSIVE Ordered: [facility] Col [facility]ge of Test 11:22:25 METABOLIC PANEL 06/16/2022 Medicine [code = 48333-6] Future Scheduled 2022-06-16 LIPID PANEL [code = Ordered: [facility] or College of Test 11:22:25 59377-8] 06/16/2022 Medicine Future Scheduled 2022-06-16 HEMOGLOBIN A1C [code Ordered: [facility] of Test 11:22:25 = 4548-4] 06/16/2022 Medicine Future Scheduled 2022-06-16 HIGH SENSITIVITY CRP Ordered: [facility] of Test 11:22:25 [code = 08774-5] 06/16/2022 Medicine Future Scheduled 2022-06-16 FERRITIN [code = Ordered: [facility] of Test 11:22:25 37559-4] 06/16/2022 Medicine Future Scheduled 2022-03-[address] [facility] Test 00:00:00 (#1) [code = Medical Center INFLUENZA VACCINE (#1)] Future Scheduled 2021-07-[address] [facility] Test 00:00:00 (12+) [code = [facility] Center DEPRESSION SCREENING (12+)] Future Scheduled 2021-07-30 FALLS RISK SCREENING [facility] Test 00:00:00 [code = FALLS RISK Medical C enter SCREENING] Future Scheduled 2021-06-10 FALL SCREEN [code = [employer] [facility] Test 11:44:40 FALL SCREEN] Medicine Future Scheduled 2021-06-10 COVID-19 Vaccine (3 [employer] [facility] Test 11:44:40 - Booster for Medicine Moderna series) [code = COVID-19 Vaccine (3 - Booster for Moderna series)] Future Scheduled 2021-06-10 ZOSTER VACCINE (2 of [facility] of Test 11:44:40 2) [code = ZOSTER Medicine VACCINE (2 of 2)] Future Scheduled 2021-06-10 Screening for [facility] Test 11:44:40 malignant neoplasm Medicine of colon (procedure) [code = 496554654] Future Scheduled 2021-06-10 Screening for [facility] Test 11:44:40 malignant neoplasm Medicine of breast (procedure) [code = 271538785] Future Scheduled 2021-06-10 TETANUS SHOT (ADULT) [facility] of Test 11:44:40 [code = TETANUS SHOT Medicin e (ADULT)] Future Scheduled 2021-06-10 COLOGUARD [code = Ordered: [facility] of Test 10:50:33 23651] 06/10/2021 Medicine Future Scheduled 2021-06-10 CBC W/AUTO DIFF WITH Ordered: [facility] of Test 10:50:33 PLATELETS [code = 06/10/2021 Medicine 39431-3] Future Scheduled 2021-06-10 COMPREHENSIVE Ordered: [facility] of Test 10:50:33 METABOLIC PANEL 06/10/2021 Medicine [code = 98465-6] Future Scheduled 2021-06-10 LIPID PANEL [code = Ordered: [facility] or College of Test 10:50:33 89583-1] 06/10/2021 Medicine Future Scheduled 2021-06-10 VITAMIN D 25 HYDROXY Ordered: [facility] of Test 10:50:33 [code = 1989-3] 06/10/2021 Medicine Future Scheduled 1997 SHINGLES VACCINES ([address] [facility] 00:00:00 of 2) [code = [facility] SHINGLES VACCINES (1 of 2)] Future Scheduled 1997 SHINGLES VACCINES ([address] [facility] Test 00:00:00 of 2) [code = [facility] Center SHINGLES VACCINES (1 of 2)] Future Scheduled [address] [facility] 00:00:00 SCREENING [code = Medical Ce nter HEPATITIS C SCREENING] Future Scheduled [address] [facility] 00:00:00 SCREENING [code = Medical Ce nter HEPATITIS C SCREENING] Future Scheduled [address] [facility] Test 00:00:00 Counseling and Medical Cente r Screening (12+) [code = Tobacco Cessation Counseling and Screening (12+)] Future Scheduled 1948-03-07 COVID-[address] [facility] 00:00:00 (#1) [code = [facility] COVID-19 VACCINE (#1)] Future Scheduled 1948-03-07 COVID-[address] [facility] Test 00:00:00 (#1) [code = [facility] COVID-19 VACCINE (#1)] Future Scheduled [address] [facility] 00:[facility]:00 malignant neoplasm Medical C enter of breast (procedure) [code = 325533324] Future Scheduled [address] [facility] 00:00:00 (combo) [code = CT Medical C enter Colonography (combo)] Future Scheduled [address] [facility] 00:00:00 malignant neoplasm Medical C enter of colon (procedure) [code = 160507830] Future Scheduled [address] [facility] Test 00:00:00 malignant neoplasm Medical C enter of colon (procedure) [code = 016199374] Future Scheduled 1947 DXA SCAN [code = DXA [facility] Test 00:00:00 SCAN] [facility] Future Scheduled [address] [facility] 00:00:00 malignant neoplasm Medical C enter of colon (procedure) [code = 695105458] Future Scheduled [address] [facility] 00:00:00 malignant neoplasm Medical C enter of colon (procedure) [code = 629263118] Future Scheduled 1947 Sigmoidoscopy [code [facility] Test 00:00:00 = Sigmoidoscopy] Medical [address] [facility] Future Scheduled [address] [facility] 00:00:00 (combo) [code = CT Medical C enter Colonography (combo)] Future Scheduled [address] [facility] 00:00:00 malignant neoplasm Medical C enter of colon (procedure) [code = 974937369] Future Scheduled [address] [facility] Test 00:00:00 malignant neoplasm Medical C enter of colon (procedure) [code = 104062336] Future Scheduled 1947 DXA SCAN [code = DXA [facility] Test 00:00:00 SCAN] Medical Center Future Scheduled [address] [facility] 00:00:00 malignant neoplasm Medical C enter of colon (procedure) [code = 156127704] Future Scheduled [address] [facility] 00:00:00 malignant neoplasm Medical C enter of colon (procedure) [code = 353691895] Future Scheduled 1947 Sigmoidoscopy [code [facility] Test 00:00:00 = Sigmoidoscopy] Medical [address] Future Scheduled URIC ACID [code = Ordered: [facility] Test 3084-1] 03/04/2020 Medicine Future Scheduled BMI FOLLOW UP PLAN [facility] Test [code = BMI FOLLOW Medicine UP PLAN] Future Scheduled FALL SCREEN [code = [facility] Test FALL SCREEN] Medicine Future Scheduled FLU VACCINE > 6 [facility] ollege of Test MONTHS [code = FLU Medicine VACCINE > 6 MONTHS] Future Scheduled MAMMOGRAM ANNUAL [facility] Test [code = MAMMOGRAM Medicine ANNUAL] Future Scheduled COLON CANCER [facility] of Test SCREENING: Medicine COLONOSCOPY [code = COLON CANCER SCREENING: COLONOSCOPY] Future Scheduled TETANUS SHOT (ADULT) [facility] Test [code = TETANUS SHOT Medicin e (ADULT)] Future Scheduled MI REMOVAL OF SKIN Ordered: [facility] Test TAGS, UP TO 15 [code 03/05/2020 Medicin e = 79810] Future Scheduled FALL SCREEN [code = [facility] Test FALL SCREEN] Medicine Future Scheduled FLU VACCINE > 6 [facility] C ollege of Test MONTHS [code = FLU Medicine VACCINE > 6 MONTHS] Future Scheduled MAMMOGRAM ANNUAL [facility] of Test [code = MAMMOGRAM Medicine ANNUAL] Future Scheduled COLON CANCER [facility] ege of Test SCREENING: Medicine COLONOSCOPY [code = COLON CANCER SCREENING: COLONOSCOPY] Future Scheduled TETANUS SHOT (ADULT) [facility] Test [code = TETANUS SHOT Medicin e (ADULT)] Future Scheduled FALL SCREEN [code = [facility] [place] of Test FALL SCREEN] Medicine Future Scheduled FLU VACCINE > 6 [facility] ollege of Test MONTHS [code = FLU Medicine VACCINE > 6 MONTHS] Future Scheduled MAMMOGRAM ANNUAL [facility] of Test [code = MAMMOGRAM Medicine ANNUAL] Future Scheduled COLON CANCER [facility] ege of Test SCREENING: Medicine COLONOSCOPY [code = COLON CANCER SCREENING: COLONOSCOPY] Future Scheduled TETANUS SHOT (ADULT) [facility] Test [code = TETANUS SHOT Medicin e (ADULT)] Future Scheduled BASIC METABOLIC Ordered: [facility] ollege of Test PANEL [code = 04/16/2020 Medicine 16727-3] Future Scheduled CALCIUM IONIZED Ordered: [facility] ollege of Test [code = 07656-5] 04/16/2020 Medicine Future Scheduled PTH INTACT [code = Ordered: [facility] of Test 2731-8] 04/16/2020 Medicine Future Scheduled ZOSTER VACCINE (1 of [facility] of Test 2) [code = ZOSTER Medicine VACCINE (1 of 2)] Future Scheduled FALL SCREEN [code = [facility] [place] of Test FALL SCREEN] Medicine Future Scheduled FLU VACCINE > 6 [facility] ollege of Test MONTHS [code = FLU Medicine VACCINE > 6 MONTHS] Future Scheduled MAMMOGRAM ANNUAL [facility] of Test [code = MAMMOGRAM Medicine ANNUAL] Future Scheduled COLON CANCER [facility] ege of Test SCREENING: Medicine COLONOSCOPY [code = COLON CANCER SCREENING: COLONOSCOPY] Future Scheduled TETANUS SHOT (ADULT) [facility] Test [code = TETANUS SHOT Medicin e (ADULT)] Future Scheduled FALL SCREEN [code = [facility] [place] of Test FALL SCREEN] Medicine Future Scheduled MAMMOGRAM ANNUAL [facility] of Test [code = MAMMOGRAM Medicine ANNUAL] Future Scheduled FLU VACCINE > 6 [facility] ollege of Test MONTHS [code = FLU Medicine VACCINE > 6 MONTHS] Future Scheduled COLON CANCER [facility] ege of Test SCREENING: Medicine COLONOSCOPY [code = COLON CANCER SCREENING: COLONOSCOPY] Future Scheduled TETANUS SHOT (ADULT) [facility] of Test [code = TETANUS SHOT Medicin e (ADULT)] Future Scheduled URIC ACID [code = Ordered: [facility] of Test 3084-1] 01/29/2020 Medicine Future Scheduled BMI FOLLOW UP PLAN [facility] of Test [code = BMI FOLLOW Medicine UP PLAN] Future Scheduled FALL SCREEN [code = [facility] of Test FALL SCREEN] Medicine Future Scheduled FLU VACCINE > 6 [facility] of Test MONTHS [code = FLU Medicine VACCINE > 6 MONTHS] Future Scheduled MAMMOGRAM ANNUAL [facility] of Test [code = MAMMOGRAM Medicine ANNUAL] Future Scheduled COLON CANCER [facility] ege of Test SCREENING: Medicine COLONOSCOPY [code = COLON CANCER SCREENING: COLONOSCOPY] Future Scheduled TETANUS SHOT (ADULT) [facility] Test [code = TETANUS SHOT Medicin e (ADULT)] Future Scheduled US THYROID [code = 1 Occurrences [facility] of Test 61170] starting Medicine 03/08/2020 until 03/08/[address] FOOT LEFT W WO 1 Occurrences [facility] of Test CONTRAST [code = starting Medicine 35203] 03/04/2020 until 10/02/[address] FOOT LEFT W WO 1 Occurrences [facility] of Test CONTRAST [code = starting Medicine 80059] 03/04/2020 until 10/02/2020 Future Scheduled XR FOOT LEFT 1 Occurrences [facility]ge of Test (COMPLETE) [code = starting Medicine 99660-8] 01/29/2020 until 08/31/2020 Future Scheduled US VENOUS LEG RIGHT 1 Occurrences [facility] of Test [code = 02947] starting Medicine 01/29/2020 until 08/31/2020 Future Scheduled XR CHEST PA AND 1 Occurrences [facility] of Test LATERAL [code = starting Medicine 71998-3] 03/07/2019 until 10/06/2019 Encounters Start End Encounter Admission Attending Care Care Encounter Source Date/Time Date/Time Type Type Clinicians Facility Department ID 2022-09-15 Outpatient SYSTEM, [facility] ICRA [id number] 10:59:38 PROVIDER Eldon o n 2022-12-05 2022-12-10 Inpatient ER REESE GIL [facility] Emergency [id number] [facility] 10:16:00 18:07:00 2022-12-01 2022-12-01 Office CHUCHO MARY 1.2.840.114 [id number] [facility] 14:45:14 17:28:41 Visit RUPERTO AMBULATOR 350.1.13.21 College Y 0.2.7.2.686 of [id number] Medi harshil 300 e 2022-12-01 2022-12-01 Outpatient BCM BCM [id number] [facility] 16:01:33 16:01:33 Colleg e of Medicin e 2022-10-05 2022-10-05 Outpatient SAM ESPINOSAFREDY MDA MDA [id number] 07:30:00 23:59:00 Eldon funes 2022-10-05 2022-10-05 [facility] Fredy Espinosa 1.2.840.1 [id number] [facility] 07:30:00 23:59:00 Encounter 00255.1.1 it y of 3.412.2.7 [place] .3.342210 MD [facility] 2022-10-05 2022-10-05 Orders Pathiyil, 1.2.840.1 [id number] Univers 00:00:00 00:00:00 Only Deepti 28592.1.1 ity of 3.412.2.7 [place] .3.030428 MD [facility] 2022-10-05 2022-10-05 Travel 1.2.840.1 1.2.497.882 [id number] Univers 00:00:00 00:00:00 96373.1.1 350.1.13.41 ity of 3.412.2.7 [place].3.698 [place] .3.945239 084.8 [facility] 2022-10-02 2022-10-02 Outpatient SAM ESPINOSA FREDY MDA MDA [id number] 09:13:59 09:14:08 Eldon funes 2022-10-02 2022-10-02 [facility] Fredy Espinosa 1.2.840.1 [id number] Univers 09:00:00 09:14:08 70488.1.1 ity of 3.412.2.7 [place] .3.181571 MD [facility] 2022-09-14 2022-09-14 Travel 1.2.840.1 1.2.212.904 [id number] [facility] 00:00:00 00:00:00 88197.1.1 350.1.13.41 ity of 3.412.2.7 [place].3.698 [place] .3.364568 084.8 .8 [facility] 2022-06-16 2022-06-16 Office CHUCHO Mary 1.2.840.114 [id number] [facility] 11:00:00 11:30:00 Visit Ruperto AMBULATOR 350.1.13.21 College Juan Y 0.2.7.2.686 of [id number] Medi harshil 300 e 2022-02-17 2022-02-17 Outpatient BCM BC [id number] [facility] 09:55:53 11:56:31 Colleg e of Medicin e 2022-02-17 2022-02-17 Outpatient BCM BC [id number] [facility] 09:55:32 11:55:00 Colleg e of Medicin e 2021-12-20 2021-12-20 Outpatient BCM BCM [id number] [facility] 09:48:37 11:31:09 Colleg e of Medicin e 2021-06-22 2021-06-22 Outpatient BCM BCM [id number] [facility] 09:50:26 15:27:53 Colleg e of Medicin e 2021-06-22 2021-06-22 Outpatient BCM BCM [id number] [facility] 09:50:54 09:50:54 Colleg e of Medicin e 2021-06-13 2021-06-13 Outpatient BCM BCM [id number] [facility] 10:00:10 13:53:58 Colleg e of Medicin e 2021-06-10 2021-06-10 Office CHUCHO MARY 1.2.840.114 [id number] [facility] 10:10:46 16:00:43 Visit RUPERTO AMBULATOR 350.1.13.21 College Y 0.2.7.2.686 of [id number] Medi harshil 300 e 2020-04-16 2020-04-16 Office CHUCHO Mary 1.2.840.114 [id number] [facility] 08:44:17 09:14:17 Visit Ruperto AMBULATOR 350.1.13.21 College Juan Y 0.2.7.2.686 of [id number] Medi harshil 300 e 2020-03-18 2020-03-18 Outpatient SAM HOLDER [facility] [id number] SLE 00:00:00 00:00:00 JUJU 2020-03-11 2020-03-11 Outpatient Alejandra, [facility] [id number]- [facility] 08:30:00 08:30:00 Lauren [id number] [facility] 2020-03-08 2020-03-08 Office Gabrielle Hickey BCLena 1.2.840.114 [id number] [facility] 13:36:54 14:06:54 Visit AMBULATOR 350.1.13.21 College Y 0.2.7.2.686 of [id number] Medi harshil 310 e 2020-03-05 2020-03-05 Office Milagros Salomon BCM 1.2.840.114 [id number] [facility] 08:10:49 08:34:32 Visit AMBULATOR 350.1.13.21 College Y 0.2.7.2.686 of [id number] Medi harshil 300 e 2020-03-04 2020-03-04 Office CHUCHO Holder 1.2.840.114 [id number] [facility] 10:49:13 11:34:13 Visit Juju AMBULATOR 350.1.13.21 College Y 0.2.7.2.686 of [id number] Medi harshil 370 e 2020-02-05 2020-02-05 Outpatient SAM RUFF SLEDeclan [facility] [id number] SLE 00:00:00 00:00:00 ARTIE 2020-01-29 2020-01-29 Office CHUCHO Caruso 1.2.840.114 [id number] [facility] 13:10:41 16:53:04 Visit Arnoldo AMBULATOR 350.1.13.21 College [place] Y 0.2.7.2.686 of el [id number] Medi harshil 300 e 2019-03-07 2019-03-07 Office CHUCHO Mary 1.2.840.114 [id number] [facility] 13:54:52 17:35:47 Visit Ruperto LANCASTERATOR 350.1.13.21 [facility] 0.2.7.2.686 [id number] [facility] 300 e Results Test Description Test Time Test Comments Results Result [facility] e Comments CT, CHEST, 2022-11-27 Unlisted Reason for WITHOUT CONTRAST 4 Exam - Click Yes and * 10:52:00 Enter Reason [facility] Below->No [facility] 1945 Sex: F FI NAL REPORT CT Chest without contrast History: Pneumonia, effusion or abscess suspected Comparison: 12/05/2022 Technique: serial axial imaging was performed without intravenous contrast as per departmental protocol. Multiplanar images are reconstructed and reviewed when indicated. This CT examination is performed using one or more of the following dose reduction techniques: Automated exposure control, adjustment of the mA and /or kV according to patient size, and/or use of iterative reconstruction technique. Findings: A left thyroid lobe solid nodule measures nearly 2 cm in size. No mediastinal lymphadenopathy. No definite hilar enlargement. Normal size heart. No pericardial effusion. No thoracic aortic aneurysm. Normal caliber of main pulmonary trunk. Marked interval improvement in previous large right pleural effusion status post placement of a right chest tube. There is a small residual right hydropneumothorax. There are scattered residual areas of right upper lobe, right middle lobe, and right lower lobe partial atelectasis. No significant findings in the partially imaged abdomen. Patient status post bilateral breast implants, with right breast implant appearance suggestive of intracapsular rupture. No aggressive osseous lesion. Impression: 1. Marked interval improvement in previous large right pleural effusion status post placement of a right chest tube. Small residual loculated right hydropneumothorax.2. Aeration of the right lung is significantly improved, with residual areas of scattered partial atelectasis.3. A solid left thyroid lobe nodule measures nearly 2 cm in size. Recommend further characterization with dedicated thyroid ultrasound, if not performed previously. Signed: Felipe Sebastian Verified Date/Time: 12/10/2022 10:52:03 Reading Location: [facility] C013X Ortho Consult Reading Room , CHEST, 1 2022-11-27 Reason for VIEW, NON DEPT 4 exam:->right chest 09:27:00 tube, eval pleural CHI effusion and tube [facility] placementShould this CENTERName: [facility], be performed at the [facility] : bedside?->Yes 1945 Sex: F FI NAL REPORT Chest one view: HISTORY: Right chest tube, evaluate pleural effusions Compared to 12/09/2022. There is limited right basilar atelectasis. A right chest tube is again noted with minimal adjacent pleural effusion and subcutaneous emphysema. No definite pneumothorax is visualized. The left lung is clear and cardiac size remains within normal limits. Signed: Cristin Bah Verified Date/Time: 12/10/2022 09:27:19 , CHEST, 1 2022-11-27 Reason for VIEW, NON DEPT 3 exam:->Eval effusion 12:48:00 sizeShould this be CHI performed at the [facility]?->Yes CENTERName: HIPOLITO GALEAS : 1945 Sex: F FI NAL REPORT Chest, one view History: Assess size of pleural effusion Comparison: 12/08/2022 Findings: Previous right pleural effusion shows a significant decrease in size. Right chest tube remains in place. There may be a small left pleural effusion, similar to the prior examination. The underlying lungs are clear. The heart is normal in size. No pneumothorax is apparent. Signed: Felipe Sebastian [facility] Verified Date/Time: 12/09/2022 12:48:50 PHORUS 2022-12-09 05:47:22 Test Item Value Reference Range Interpretation Comme nts PHOSPHORUS (BEAKER) (test code = 604) 4.3 mg/dL 2.3-4.7 Supervisor Adult Education ID - MMBASIC METABOLIC [id number] 05:47:21 Test Item Value Reference Range Interpretation Comments SODIUM (BEAKER) 135 meq/L 136-145 L (test code = 381) POTASSIUM 4.4 meq/L 3.5-5.1 (BEAKER) (test code = 379) CHLORIDE (BEAKER) 100 meq/L 98-107 (test code = 382) CO2 (BEAKER) 28 meq/L 22-29 (test code = 355) BLOOD UREA 10 mg/dL 7-21 NITROGEN (BEAKER) (test code = 354) CREATININE 0.65 mg/dL 0.57-1.25 (BEAKER) (test code = 358) GLUCOSE RANDOM 146 mg/dL 70-105 H (BEAKER) (test code = 652) CALCIUM (BEAKER) 9.3 mg/dL 8.4-10.2 (test code = 697) EGFR (BEAKER) 92 Interpretatio n of eGFR (test code = mL/min/1.73 values Stage De scription 1092) sq m Result G1 Marga l or high >=90 G2 Mildly decreased 60-89 G3a Mildl y to moderately 45-5 9 G3b Moderately to s everely 30-44 G4 Severl y decreased 15-29 G5 Kidne y failure <15Reported eGF R is based on the CKD-EPI 2020 equation that d oes not use a race coefficientEsti mated GFR is not as accur ate as Creatinine Love conchis in predicting glom erular filtration rate . Estimated GFR is not appl icable for dialysis patien ts Supervisor Adult Education ID - [id number] 05:47:21 Test Item Value Reference Range Interpretation Comments MAGNESIUM (BEAKER) (test code = 2.0 mg/dL 1.6-2.6 627) Supervisor Adult Education ID - MMCBC W/PLT COUNT & AUTO [id number] 05:16:03 Test Item Value Reference Range Interpretation Comments WHITE BLOOD CELL COUNT (BEAKER) 6.8 K/ L 3.5-10.5 (test code = 775) RED BLOOD CELL COUNT (BEAKER) 3.74 M/ L 3.93-5.22 L (test code = 761) HEMOGLOBIN (BEAKER) (test code = 11.4 GM/DL 11.2-15.7 410) HEMATOCRIT (BEAKER) (test code = 34.5 % 34.1-44.9 411) MEAN CORPUSCULAR VOLUME (BEAKER) 92 fL 79-95 (test code = 753) MEAN CORPUSCULAR HEMOGLOBIN 30.5 pg 25.6-32.2 (BEAKER) (test code = 751) MEAN CORPUSCULAR HEMOGLOBIN CONC 33.0 GM/DL 32.2-35.5 (BEAKER) (test code = 752) RED CELL DISTRIBUTION WIDTH 12.0 % 11.7-14.4 (BEAKER) (test code = 412) PLATELET COUNT (BEAKER) (test 402 K/CU MM 150-450 code = 756) MEAN PLATELET VOLUME (BEAKER) 8.0 fL 9.4-12.3 L (test code = 754) NUCLEATED RED BLOOD CELLS 0 /100 WBC 0-0 (BEAKER) (test code = 413) NEUTROPHILS RELATIVE PERCENT 57 % (BEAKER) (test code = 429) LYMPHOCYTES RELATIVE PERCENT 26 % (BEAKER) (test code = 430) MONOCYTES RELATIVE PERCENT 12 % (BEAKER) (test code = 431) EOSINOPHILS RELATIVE PERCENT 4 % (BEAKER) (test code = 432) BASOPHILS RELATIVE PERCENT 1 % (BEAKER) (test code = 437) NEUTROPHILS ABSOLUTE COUNT 3.88 K/ L 1.56-6.13 (BEAKER) (test code = 670) LYMPHOCYTES ABSOLUTE COUNT 1.77 K/ L 1.18-3.74 (BEAKER) (test code = 414) MONOCYTES ABSOLUTE COUNT (BEAKER) 0.82 K/ L 0.24-0.36 H (test code = 415) EOSINOPHILS ABSOLUTE COUNT 0.25 K/ L 0.04-0.36 (BEAKER) (test code = 416) BASOPHILS ABSOLUTE COUNT (BEAKER) 0.04 K/ L 0.01-0.08 (test code = 417) IMMATURE GRANULOCYTES-RELATIVE 0.30 % 0.00-1.00 PERCENT (BEAKER) (test code = 2801) BODY FLUID CULTURE + GRAM [id number] 16:38:38 Test Item Value Reference Range Interpretation Comments CULTURE (BEAKER) (test code = 1095) No growth RAD, CHEST, 1 VIEW, NON [id number] 13:19:00Reason for exam:->right chest tube, eval pleural effusion and tube placementShould this be performed at the bedside?->[facility] : 1945 Sex: FFINAL REPORT RAD, CHEST, 1 VIEW, NON DEPT INDICATION: right chest tube, eval pleural effusion and tube placement COMPARISON: Prior day's exam TECHNIQUE: Portable frontal view(s) of the chest. FINDINGS: Support Lines and Devices: Stable. Lungs and pleura: Moderate right pleural effusion,decreased compared to prior exam. No pneumothorax identified. Heart and mediastinum: Stable contours. Stable surgical changes. Additional findings: None. IMPRESSION: Moderate right and small left pleural effusions. The right-sided pleural effusion is mildly decreased compared to prior exam. Signed: Tamara Darnell MDReport Verified Date/Time: 12/08/2022 13:19:28 Reading Location: [address] Reading Room [id number] 07:34:28 Test Item Value Reference Range Interpretation Comments MAGNESIUM (BEAKER) (test code = 1.7 mg/dL 1.6-2.6 627) Supervisor Adult Education ID - [id number] 07:34:28 Test Item Value Reference Range Interpretation Comments PHOSPHORUS (BEAKER) (test code = 3.3 mg/dL 2.3-4.7 604) Supervisor Adult Education ID - ADMINBASIC METABOLIC [id number] 07:34:27 Test Item Value Reference Range Interpretation Comments SODIUM (BEAKER) 134 meq/L 136-145 L (test code = 381) POTASSIUM 4.3 meq/L 3.5-5.1 (BEAKER) (test code = 379) CHLORIDE (BEAKER) 100 meq/L 98-107 (test code = 382) CO2 (BEAKER) 24 meq/L 22-29 (test code = 355) BLOOD UREA 9 mg/dL 7-21 NITROGEN (BEAKER) (test code = 354) CREATININE 0.67 mg/dL 0.57-1.25 (BEAKER) (test code = 358) GLUCOSE RANDOM 127 mg/dL 70-105 H (BEAKER) (test code = 652) CALCIUM (BEAKER) 9.0 mg/dL 8.4-10.2 (test code = 697) EGFR (BEAKER) 91 Interpretatio n of eGFR (test code = mL/min/1.73 values Stage D escription 1092) sq m Result G1 Marga l or high >=90 G2 Mildly decreased 60-89 G3a Mildl y to moderately 45-5 9 G3b Moderately to s everely 30-44 G4 Severl y decreased 15-29 G5 Kidney failure <15Reported eGF R is based on the CKD-EPI 2020 equation that d oes not use a race coefficientEsti mated GFR is not as accur ate as Creatinine Love conchis in predicting glom erular filtration rate . Estimated GFR is not appl icable for dialysis patien ts Supervisor Adult Education ID - ADMINCBC W/PLT COUNT & AUTO [id number] 07:22:35 Test Item Value Reference Range Interpretation Comments WHITE BLOOD CELL COUNT 6.7 K/ L 3.5-10.5 (BEAKER) (test code = 775) RED BLOOD CELL COUNT 3.60 M/ L 3.93-5.22 L (BEAKER) (test code = 761) HEMOGLOBIN (BEAKER) 11.1 GM/DL 11.2-15.7 L (test code = 410) HEMATOCRIT (BEAKER) 33.3 % 34.1-44.9 L (test code = 411) MEAN CORPUSCULAR 93 fL 79-95 Discordant results VOLUME (BEAKER) (test compar ed to code = 753) previous, clini tiffany correlation req uired MEAN CORPUSCULAR 30.8 pg 25.6-32.2 HEMOGLOBIN (BEAKER) (test code = 751) MEAN CORPUSCULAR 33.3 GM/DL 32.2-35.5 HEMOGLOBIN CONC (BEAKER) (test code = 752) RED CELL DISTRIBUTION 12.1 % 11.7-14.4 WIDTH (BEAKER) (test code = 412) PLATELET COUNT 386 K/CU MM 150-450 (BEAKER) (test code = 756) MEAN PLATELET VOLUME 8.5 fL 9.4-12.3 L (BEAKER) (test code = 754) NUCLEATED RED BLOOD 0 /100 WBC 0-0 CELLS (BEAKER) (test code = 413) NEUTROPHILS RELATIVE 68 % PERCENT (BEAKER) (test code = 429) LYMPHOCYTES RELATIVE 17 % PERCENT (BEAKER) (test code = 430) MONOCYTES RELATIVE 11 % PERCENT (BEAKER) (test code = 431) EOSINOPHILS RELATIVE 3 % PERCENT (BEAKER) (test code = 432) BASOPHILS RELATIVE 1 % PERCENT (BEAKER) (test code = 437) NEUTROPHILS ABSOLUTE 4.58 K/ L 1.56-6.13 COUNT (BEAKER) (test code = 670) LYMPHOCYTES ABSOLUTE 1.13 K/ L 1.18-3.74 L COUNT (BEAKER) (test code = 414) MONOCYTES ABSOLUTE 0.73 K/ L 0.24-0.36 H COUNT (BEAKER) (test code = 415) EOSINOPHILS ABSOLUTE 0.18 K/ L 0.04-0.36 COUNT (BEAKER) (test code = 416) BASOPHILS ABSOLUTE 0.05 K/ L 0.01-0.08 COUNT (BEAKER) (test code = 417) IMMATURE 0.40 % 0.00-1.00 GRANULOCYTES-RELATIVE PERCENT (BEAKER) (test code = 2801) RAD, CHEST, 1 VIEW, NON [id number] 18:37:00Reason for exam:->s/p right chest tube placement, evaluate for chest tube position and pneumothoraxShould this be performed at the bedside?->Yes [facility] 1945 Sex: FFINALREPORT Chest, one view. HISTORY: s/p right chest tube placement, evaluate for chest tube position and pneumothorax COMPARISON: Radiograph from 12/06/2022 IMPRESSION: Interval placement of a right pleural catheter. The right pleural effusion has decreased in size and is now moderatevolume. There is likely some edema in the reexpanded right lung. Residual right basilar atelectasis.Trace left pleural effusion with mild left basilar atelectasis. No pneumothorax. The cardiac silhouette is unchanged in size. No acute bone abnormality. Mild leftward convex curvature of the lower thoracic spine. Signed: Aly Mendoza MDReport Verified Date/Time: 12/07/2022 18:37:58 Electronically signedby: ALY MENDOZA MD on 12/07/2022 06:37 PMBASIC METABOLIC [id number] 05:21:27 Test Item Value Reference Range Interpretation Comments SODIUM (BEAKER) 129 meq/L 136-145 L (test code = 381) POTASSIUM 3.8 meq/L 3.5-5.1 (BEAKER) (test code = 379) CHLORIDE (BEAKER) 94 meq/L 98-107 L (test code = 382) CO2 (BEAKER) 27 meq/L 22-29 (test code = 355) BLOOD UREA 11 mg/dL 7-21 NITROGEN (BEAKER) (test code = 354) CREATININE 0.70 mg/dL 0.57-1.25 (BEAKER) (test code = 358) GLUCOSE RANDOM 140 mg/dL 70-105 H (BEAKER) (test code = 652) CALCIUM (BEAKER) 9.0 mg/dL 8.4-10.2 (test code = 697) EGFR (BEAKER) 90 Interpretatio n of eGFR (test code = mL/min/1.73 values Stage De scription 1092) sq m Result G1 Marga l or high >=90 G2 Mildly decreased 60-89 G3a Mildl y to moderately 45-5 9 G3b Moderately to s everely 30-44 G4 Severl y decreased 15-29 G5 Kidney failure <15Reported eGF R is based on the CKD-EPI 2020 equation that d oes not use a race coefficientEsti mated GFR is not as accur ate as Creatinine Love balderrama in predicting glom erular filtration rate . Estimated GFR is not appl icable for dialysis patien ts Supervisor Adult Education ID - [id number] 05:21:27 Test Item Value Reference Range Interpretation Comments MAGNESIUM (BEAKER) (test code = 1.7 mg/dL 1.6-2.6 627) Supervisor Adult Education ID - [id number] 05:21:27 Test Item Value Reference Range Interpretation Comments PHOSPHORUS (BEAKER) (test code = 3.1 mg/dL 2.3-4.7 604) Supervisor Adult Education ID - MMCBC W/PLT COUNT & AUTO [id number] 05:02:06 Test Item Value Reference Range Interpretation Comments WHITE BLOOD CELL COUNT (BEAKER) 6.7 K/ L 3.5-10.5 (test code = 775) RED BLOOD CELL COUNT (BEAKER) 3.75 M/ L 3.93-5.22 L (test code = 761) HEMOGLOBIN (BEAKER) (test code = 11.5 GM/DL 11.2-15.7 410) HEMATOCRIT (BEAKER) (test code = 33.4 % 34.1-44.9 L 411) MEAN CORPUSCULAR VOLUME (BEAKER) 89 fL 79-95 (test code = 753) MEAN CORPUSCULAR HEMOGLOBIN 30.7 pg 25.6-32.2 (BEAKER) (test code = 751) MEAN CORPUSCULAR HEMOGLOBIN CONC 34.4 GM/DL 32.2-35.5 (BEAKER) (test code = 752) RED CELL DISTRIBUTION WIDTH 11.9 % 11.7-14.4 (BEAKER) (test code = 412) PLATELET COUNT (BEAKER) (test 339 K/CU MM 150-450 code = 756) MEAN PLATELET VOLUME (BEAKER) 8.2 fL 9.4-12.3 L (test code = 754) NUCLEATED RED BLOOD CELLS 0 /100 WBC 0-0 (BEAKER) (test code = 413) NEUTROPHILS RELATIVE PERCENT 72 % (BEAKER) (test code = 429) LYMPHOCYTES RELATIVE PERCENT 12 % (BEAKER) (test code = 430) MONOCYTES RELATIVE PERCENT 14 % (BEAKER) (test code = 431) EOSINOPHILS RELATIVE PERCENT 2 % (BEAKER) (test code = 432) BASOPHILS RELATIVE PERCENT 0 % (BEAKER) (test code = 437) NEUTROPHILS ABSOLUTE COUNT 4.81 K/ L 1.56-6.13 (BEAKER) (test code = 670) LYMPHOCYTES ABSOLUTE COUNT 0.82 K/ L 1.18-3.74 L (BEAKER) (test code = 414) MONOCYTES ABSOLUTE COUNT (BEAKER) 0.91 K/ L 0.24-0.36 H (test code = 415) EOSINOPHILS ABSOLUTE COUNT 0.13 K/ L 0.04-0.36 (BEAKER) (test code = 416) BASOPHILS ABSOLUTE COUNT (BEAKER) 0.03 K/ L 0.01-0.08 (test code = 417) IMMATURE GRANULOCYTES-RELATIVE 0.30 % 0.00-1.00 PERCENT (BEAKER) (test code = 2801) RAD, CHEST, 1 VIEW, NON [id number] 17:36:00Reason for exam:- >Thoracentesis performed on the rightShould this be performed at the bedside?->YesKING[facility]Name[facility] : 1945 Sex: FFINAL REPORT Chest, one view. HISTORY: Thoracentesis performed on the right COMPARISON: Chest radiographs from yesterday IMPRESSION: The large right pleural effusion has increased in size. There is mild atelectasis of the left lower lobe. No pneumothorax. The cardiac silhouette is unchanged in size. No acute bone abnormality. Moderate leftward convex curvature of the lower thoracic spine. Cholecystectomy clips in the right upper quadrant. Signed: Aly Mendoza [facility] Verified Date/Time:12/06/2022 17:36:38 BASI METABOLIC [id number] 17:18:13 Test Item Value Reference Range Interpretation Comments SODIUM (BEAKER) 125 meq/L 136-145 L (test code = 381) POTASSIUM 3.6 meq/L 3.5-5.1 (BEAKER) (test code = 379) CHLORIDE (BEAKER) 90 meq/L 98-107 L (test code = 382) CO2 (BEAKER) 26 meq/L 22-29 (test code = 355) BLOOD UREA 12 mg/dL 7-21 NITROGEN (BEAKER) (test code = 354) CREATININE 0.80 mg/dL 0.57-1.25 (BEAKER) (test code = 358) GLUCOSE RANDOM 134 mg/dL 70-105 H (BEAKER) (test code = 652) CALCIUM (BEAKER) 9.4 mg/dL 8.4-10.2 (test code = 697) EGFR (BEAKER) 77 Interpretatio n of eGFR (test code = mL/min/1.73 values Stage De scription 1092) sq m Result G1 Marga l or high >=90 G2 Mildly decreased 60-89 G3a Mild ly to moderately 45-5 9 G3b Moderately to s everely 30-44 G4 Severl y decreased 15-29 G5 Kidney failure <15Reported eGF R is based on the CKD-EPI 2020 equation that d oes not use a race coefficientEsti mated GFR is not as accur ate as Creatinine Love conchis in predicting glom erular filtration rate . Estimated GFR is not appl icable for dialysis patien ts Supervisor Adult Education ID - JSBODY FLUID CELL COUNT WITH [id number] 13:57:14 Test Item Value Reference Range Interpretation Comments APPEARANCE FLUID (BEAKER) Slightly Hazy Clear A (test code = 510) COLOR FLUID (BEAKER) (test Yellow Colorless, Straw A code = 511) RBC FLUID (BEAKER) (test code 1070 /cu mm <=1 H = 513) TOTAL NUCLEATED CELL COUNT 3373 /cu mm <=5 H (BEAKER) (test code = 1442) LINING CELLS/OTHERS DIFF'D 0 (BEAKER) (test code = 1589) ADJUSTED WBC FLUID (BEAKER) 3373 /cu mm <=5 H (test code = 1691) LINING CELLS/OTHERS, 0 /cu mm <=1 CALCULATED (BEAKER) (test code = 1590) NEUTROPHILS FLUID (BEAKER) 88 % (test code = 1656) LYMPHS FLUID (BEAKER) (test 0 % code = 488) MONO/MACROPHAGE FLUID (BEAKER) 6 % (test code = 489) EOSINOPHILS FLUID (BEAKER) 6 % (test code = 491) BASO FLUID (BEAKER) (test code 0 % = 492) CONTAINER BODY FLUID (BEAKER) EDTA Tube (test code = 2873) [id number] 10:16:49 Test Item Value Reference Range Interpretation Comments CORTISOL, TOTAL (BEAKER) (test 21.2 ug/dL 3.7-19.4 H code = 2755) Supervisor Adult Education ID - JSTSH/FREE T4 IF [id number] 05:30:13 Test Item Value Reference Range Interpretation Comments THYROID STIMULATING HORMONE 0.492 uIU/mL 0.350-4.940 (BEAKER) (test code = 772) Supervisor Adult Education ID - [id number] 05:23:54 Test Item Value Reference Range Interpretation Comments MAGNESIUM (BEAKER) (test code = 1.5 mg/dL 1.6-2.6 L 627) Supervisor Adult Education ID - [id number] 05:23:54 Test Item Value Reference Range Interpretation Comments PHOSPHORUS (BEAKER) (test code = 3.1 mg/dL 2.3-4.7 604) Supervisor Adult Education ID - MARCOHEPATIC FUNCTION [id number] 05:23:54 Test Item Value Reference Range Interpretation Comments TOTAL PROTEIN (BEAKER) (test code = 6.4 gm/dL 6.0-8.3 770) ALBUMIN (BEAKER) (test code = 1145) 3.4 g/dL 3.5-5.0 L BILIRUBIN TOTAL (BEAKER) (test code 1.0 mg/dL 0.2-1.2 = 377) BILIRUBIN DIRECT (BEAKER) (test 0.3 mg/dL 0.1-0.5 code = 706) ALKALINE PHOSPHATASE (BEAKER) (test 69 U/L 40-150 code = 346) AST (SGOT) (BEAKER) (test code = 11 U/L 5-34 353) ALT (SGPT) (BEAKER) (test code = 11 U/L 6-55 347) Supervisor Adult Education ID - MARCOBASIC METABOLIC [id number] 05:23:53 Test Item Value Reference Range Interpretation Comments SODIUM (BEAKER) 126 meq/L 136-145 L (test code = 381) POTASSIUM 3.8 meq/L 3.5-5.1 (BEAKER) (test code = 379) CHLORIDE (BEAKER) 88 meq/L 98-107 L (test code = 382) CO2 (BEAKER) 27 meq/L 22-29 (test code = 355) BLOOD UREA 10 mg/dL 7-21 NITROGEN (BEAKER) (test code = 354) CREATININE 0.76 mg/dL 0.57-1.25 (BEAKER) (test code = 358) GLUCOSE RANDOM 124 mg/dL 70-105 H (BEAKER) (test code = 652) CALCIUM (BEAKER) 9.5 mg/dL 8.4-10.2 (test code = 697) EGFR (BEAKER) 82 Interpretatio n of eGFR (test code = mL/min/1.73 values Stage De scription 1092) sq m Result G1 Marga l or high >=90 G2 Mildly decreased 60-89 G3a Mildl y to moderately 45-5 9 G3b Moderately to s everely 30-44 G4 Severl y decreased 15-29 G5 Kidney failure <15Reported eGF R is based on the CKD-EPI 2020 equation that d oes not use a race coefficientEsti mated GFR is not as accur ate as Creatinine Love cnochis in predicting glom erular filtration rate . Estimated GFR is not appl icable for dialysis patien ts Supervisor Adult Education ID - MARCOPROTHROMBIN TIME/[id number] 05:23:33 Test Item Value Reference Range Interpretation Comments PROTIME (BEAKER) (test code = 14.7 seconds 11.9-14.2 H 759) INR (BEAKER) (test code = 370) 1.18 <=5.90 RECOMMENDED COUMADIN/WARFARIN INR THERAPY RANGESSTANDARD DOSE: 2.0 - 3.0 Includes: PROPHYLAXIS for venous thrombosis, systemic embolization; TREATMENT for venous thrombosis and/or pulmonary embolus.HIGH RISK: Target INR is 2.5-3.5 for patients with mechanical heart valves.CBC W/PLT COUNT & AUTO [id number] 05:04:00 Test Item Value Reference Range Interpretation Comments WHITE BLOOD CELL COUNT 7.4 K/ L 3.5-10.5 (BEAKER) (test code = 775) RED BLOOD CELL COUNT 4.02 M/ L 3.93-5.22 (BEAKER) (test code = 761) HEMOGLOBIN (BEAKER) 12.3 GM/DL 11.2-15.7 (test code = 410) HEMATOCRIT (BEAKER) 35.1 % 34.1-44.9 (test code = 411) MEAN CORPUSCULAR 87 fL 79-95 Discordant results VOLUME (BEAKER) (test compar ed to previous code = 753) results; clinic al correlation req uired MEAN CORPUSCULAR 30.6 pg 25.6-32.2 HEMOGLOBIN (BEAKER) (test code = 751) MEAN CORPUSCULAR 35.0 GM/DL 32.2-35.5 HEMOGLOBIN CONC (BEAKER) (test code = 752) RED CELL DISTRIBUTION 11.9 % 11.7-14.4 WIDTH (BEAKER) (test code = 412) PLATELET COUNT 347 K/CU MM 150-450 (BEAKER) (test code = 756) MEAN PLATELET VOLUME 8.4 fL 9.4-12.3 L (BEAKER) (test code = 754) NUCLEATED RED BLOOD 0 /100 WBC 0-0 CELLS (BEAKER) (test code = 413) NEUTROPHILS RELATIVE 68 % PERCENT (BEAKER) (test code = 429) LYMPHOCYTES RELATIVE 15 % PERCENT (BEAKER) (test code = 430) MONOCYTES RELATIVE 14 % PERCENT (BEAKER) (test code = 431) EOSINOPHILS RELATIVE 2 % PERCENT (BEAKER) (test code = 432) BASOPHILS RELATIVE 0 % PERCENT (BEAKER) (test code = 437) NEUTROPHILS ABSOLUTE 5.07 K/ L 1.56-6.13 COUNT (BEAKER) (test code = 670) LYMPHOCYTES ABSOLUTE 1.10 K/ L 1.18-3.74 L COUNT (BEAKER) (test code = 414) MONOCYTES ABSOLUTE 1.02 K/ L 0.24-0.36 H COUNT (BEAKER) (test code = 415) EOSINOPHILS ABSOLUTE 0.16 K/ L 0.04-0.36 COUNT (BEAKER) (test code = 416) BASOPHILS ABSOLUTE 0.03 K/ L 0.01-0.08 COUNT (BEAKER) (test code = 417) IMMATURE 0.40 % 0.00-1.00 GRANULOCYTES-RELATIVE PERCENT (BEAKER) (test code = 2801) OSMOLALITY, [id number] 17:00:11 Test Item Value Reference Range Interpretation Comments OSMOLALITY URINE 535 mOsm/kg See_Comment [Automated message] (BEAKER) (test code = The sy stem which 614) generated this result transmitted ref erence range: 50-1,200 mOsm/kg. The reference range was not used to int erpret this result as normal/abnormal . SODIUM, RANDOM [id number] 16:54:28 Test Item Value Reference Range Interpretation Comments SODIUM URINE (BEAKER) (test code = 54 meq/L 243) Reference Range: No NormalsOperator ID - ADMINOSMOLALITY, [id number] 16:54:03 Test Item Value Reference Range Interpretation Comments OSMOLALITY, SERUM (BEAKER) (test 268 mOsm/kg 275-295 L code = 615) URINALYSIS [id number] 14:16:30 Test Item Value Reference Range Interpretation Comments RBC UA (BEAKER) (test code = 519) 5 /HPF WBC UA (BEAKER) (test code = 520) 0 /HPF BACTERIA (BEAKER) (test code = 517) None Seen SQUAMOUS EPITHELIAL (BEAKER) (test 0 /HPF code = 516) LACTATE DEHYDROGENASE (LDH)2022-12-05 14:15:45 Test Item Value Reference Range Interpretation Comments LACTATE DEHYDROGENASE (BEAKER) (test 122 U/L 125-220 L code = 635) URINALYSIS WITH MICROSCOPIC IF [id number] 13:54:30 Test Item Value Reference Range Interpretation Comments COLOR (BEAKER) (test code = 470) Yellow CLARITY (BEAKER) (test code = 469) Clear SPECIFIC GRAVITY UA (BEAKER) (test 1.010 1.005-1.030 code = 468) PH UA (BEAKER) (test code = 467) 6.0 5.0-9.0 PROTEIN UA (BEAKER) (test code = Negative Negative 464) GLUCOSE UA (BEAKER) (test code = Negative Negative 365) KETONES UA (BEAKER) (test code = Negative Negative 371) BILIRUBIN UA (BEAKER) (test code = Negative Negative 462) BLOOD UA (BEAKER) (test code = 461) Moderate Negative A NITRITE UA (BEAKER) (test code = Negative Negative 465) LEUKOCYTE ESTERASE UA (BEAKER) (test Negative Negative code = 466) UROBILINOGEN UA (BEAKER) (test code 0.2 = 463) SOURCE(BEAKER) (test code = 5831) CT, CHEST, WITH IV CONTRAST- PE TEST [id number] 12:26:00Unlisted Reason for Exam - Click Yes and Enter Reason Below->YesUnlisted Reason for Exam->large effusion on cxr, pleuritic cp, hypoxic with ambulation, eval for PE, eval effusion, eval for underlying malignancy [facility] : 1945 Sex: FFINAL REPORT CT of the chest, pulmonary embolism protocol Clinical History: Unlisted Reason for Examlarge effusion on cxr, pleuritic cp, hypoxic with ambulation, eval for PE, eval effusion, eval for underlying malignancy Technique: Precontrast axial images at the level of the pulmonary outflow tract are obtained for the purpose of contrast bolus tracking. Postcontrast axial images of the chest are subsequently obtained with optimal pulmonary arterial enhancement followed by delayed postcontrast images. Coronal 2D reformatted images are reviewed. Axial maximum intensity projection (MIP) images are also reviewed. This exam was performed according to our departmental dose optimization program which includes automated exposure control, adjustment of the mA and/or kV according to patient's size and/or use of iterative reconstructive technique. Comparison Film: February 05, 2020 Discussion: No filling defects are identified within the pulmonary arteries to suggest acute pulmonary embolism. Unchanged 1.8 cm left thyroid nodule is heterogeneous density. No supraclavicular, axillary, mediastinal or hilar lymphadenopathy. Heart and pericardium are unremarkable. There is a large right pleural effusion with leftward mediastinal deviation. Most of the right lung is collapsed. No mass or consolidation is identified in the aerated portion of the lung. Central airways are patent, no bronchiectasis, or bronchial wall thickening. Partially imaged upper abdomen is without worrisome findings. There are bilateral breast implants, with right-sided intracapsular rupture. Bony structures demonstrate degenerative changes. Impression: No PE is identified. Large right pleural effusion. Stable 1.8 cm left thyroid nodule, which can be correlated with ultrasound. Right breast implant intracapsular rupture. Signed: Navdeep Matos MDR[facility]ort Verified Date/Time: 12/05/2022 12:26:54 Reading Location: [facility] B1 [id number] Ortho Consult Reading Room SARS-COV2/INFLUENZA/RSV [id number] 11:53:10 Test Item Value Reference Range Interpretation Comments SARS-COV2/RT-PCR Negative Negative The SARS-Co V-2 target (test code = nucleic acids a re not 7540475) detected in thi s specimen. Negat giovany results do not preclude SARS-CoV-2 infe ction and should not be u sed as the sole basis for patient management deci sions. Negative result s must be combined with c linical observations, p atient history, and epidemiological information. A false negative result may occur if a specimen i s improperly emily ected, transported or handled. This SARS CoV-2 test is a rapid, real-danica e RT-PCR test intended f or the qualitative det ection of nucleic acid fr om SARS-CoV-2 in a nasopharyngeal swab specimen collec meredith from individuals rosie pected of COVID-19 by the [facility] ide. INFLUENZA A RT-PCR Negative Negative The Flu A target nucleic (test code = acids are not d etected in 1691610) this specimen. INFLUENZA B RT-PCR Negative Negative The Flu B target nucleic (test code = acids are not d etected in 0410225) this specimen. RSV RT-PCR (test Negative Negative The RSV tar get nucleic code = 8728960) acids are no t detected in this specimen. The presence of SARS-CoV-2/FLU/RSV viral nucleic acids cannot rule out co- infections or disease caused by other viral or bacterial pathogens. As with any molecular test, mutations within the target regions of the Xpert Xpress SARS-CoV-2/Flu/RSV test could affect primer and/or probe binding resulting in failure to detect the presence of virus or the virus being detected less predictably. False negative results may occur if the virus is present at levels below the analytical limit of detection in thisspecimen.This Xpert Xpress SARS-CoV-2/Flu/RSV test is a rapid, real-time RT-PCR test intended for the qualitative detection of nucleic acid from Xpert Xpress SARS-CoV-2/Flu/RSV in a nasopharyngeal swabspecimen collected from individuals suspected of Xpert Xpress SARS-CoV-2/Flu/RSV by their healthcareprovider. Results from [facility] Xpert Xpress SARS-CoV-2/Flu/RSV test should be correlated with the clinical history, epidemiological data, and other data available to the clinician evaluating the patient. Viral nucleic acid may persist in vivo, independent of virus viability. Detection of analyte target(s)does not imply that the corresponding virus(es) are infectious or are the causative agents for clinical symptoms.This test has not been Food and Drug Administration (FDA) cleared or approved and has been authorized by FDA under an Emergency Use Authorization (EUA). This EUA will be effective until thedeclaration that circumstances exist justifying the authorization of the emergency use of in vitro diagnostic tests for detection and/or diagnosis of COVID-19 is terminated under Section 564(b)(2) of the Act or the EUA is revoked under Section 564(g) of the Act.Fact Sheet for Healthcare Providers:https ://www.[employer]/Documents/Xpert%20Xpress%20SARS%20CoV-2/Fact%20Sheets/302-390 2%42DIFS-GNP-3%20HEALTHCARE%20PROVIDERS%20FACT%20SHEET.pdfFact Sheet for Healthcare Patients:https://www.[employer]/Docum ents/Xpert%20Xpress%20SARS%20Cov-2/Fact%20Sheets/302-3801%45UDIH-CPC-8%20PATIENT %20FACT%20SHEET.pdfHIGH SENSITIVITY TROPONIN [id number] 11:45:19 Test Item Value Reference Range Interpretation Comments HIGH SENSITIVITY TROPONIN I (test 3 pg/ml <=34 code = 0899048) The High-Sensitivity Troponin I assay is performed on Siemens [employer] IM Analyzer. Results of this assay should always be interpreted in conjunction with the patient's medical history, clinical presentation, and other findings.CBC W/PLT COUNT & AUTO [id number] 11:32:15 Test Item Value Reference Range Interpretation Comments WHITE BLOOD CELL COUNT (BEAKER) 10.7 K/ L 3.5-10.5 H (test code = 775) RED BLOOD CELL COUNT (BEAKER) 4.46 M/ L 3.93-5.22 (test code = 761) HEMOGLOBIN (BEAKER) (test code = 13.7 GM/DL 11.2-15.7 410) HEMATOCRIT (BEAKER) (test code = 40.4 % 34.1-44.9 411) MEAN CORPUSCULAR VOLUME (BEAKER) 91 fL 79-95 (test code = 753) MEAN CORPUSCULAR HEMOGLOBIN 30.7 pg 25.6-32.2 (BEAKER) (test code = 751) MEAN CORPUSCULAR HEMOGLOBIN CONC 33.9 GM/DL 32.2-35.5 (BEAKER) (test code = 752) RED CELL DISTRIBUTION WIDTH 11.6 % 11.7-14.4 L (BEAKER) (test code = 412) PLATELET COUNT (BEAKER) (test 452 K/CU MM 150-450 H code = 756) MEAN PLATELET VOLUME (BEAKER) 8.3 fL 9.4-12.3 L (test code = 754) NEUTROPHILS RELATIVE PERCENT 76 % (BEAKER) (test code = 429) LYMPHOCYTES RELATIVE PERCENT 11 % (BEAKER) (test code = 430) MONOCYTES RELATIVE PERCENT 11 % (BEAKER) (test code = 431) EOSINOPHILS RELATIVE PERCENT 1 % (BEAKER) (test code = 432) BASOPHILS RELATIVE PERCENT 1 % (BEAKER) (test code = 437) NEUTROPHILS ABSOLUTE COUNT 8.14 K/ L 1.56-6.13 H (BEAKER) (test code = 670) LYMPHOCYTES ABSOLUTE COUNT 1.15 K/ L 1.18-3.74 L (BEAKER) (test code = 414) MONOCYTES ABSOLUTE COUNT (BEAKER) 1.22 K/ L 0.24-0.36 H (test code = 415) EOSINOPHILS ABSOLUTE COUNT 0.10 K/ L 0.04-0.36 (BEAKER) (test code = 416) BASOPHILS ABSOLUTE COUNT (BEAKER) 0.05 K/ L 0.01-0.08 (test code = 417) IMMATURE GRANULOCYTES-RELATIVE 0.40 % 0.00-1.00 PERCENT (BEAKER) (test code = 2801) PROTHROMBIN [id number] 11:32:09 Test Item Value Reference Range Interpretation Comments PROTIME (BEAKER) (test code = 10.1 seconds 9.8-12.0 759) INR (BEAKER) (test code = 370) 0.92 <=5.90 RECOMMENDED COUMADIN/WARFARIN INR THERAPY RANGESSTANDARD DOSE: 2.0 - 3.0 Includes: PROPHYLAXIS for venous thrombosis, systemic embolization; TREATMENT for venous thrombosis and/or pulmonary embolus.HIGH RISK: Target INR is 2.5-3.5 for patients with mechanical heart valves.B-TYPE NATRIURETIC FACTOR (BNP) 2022-12-05 11:30:48 Test Item Value Reference Range Interpretation Comments B-TYPE NATRIURETIC PEPTIDE (BEAKER) 15 pg/mL 0-100 (test code = 700) BASIC METABOLIC [id number] 11:30:47 Test Item Value Reference Range Interpretation Comments SODIUM (BEAKER) 128 meq/L 136-145 L (test code = 381) POTASSIUM 3.6 meq/L 3.5-5.1 (BEAKER) (test code = 379) CHLORIDE (BEAKER) 91 meq/L 98-107 L (test code = 382) CO2 (BEAKER) 27 meq/L 22-29 (test code = 355) BLOOD UREA 9 mg/dL 7-21 NITROGEN (BEAKER) (test code = 354) CREATININE 0.90 mg/dL 0.57-1.25 (BEAKER) (test code = 358) GLUCOSE RANDOM 178 mg/dL 70-105 H (BEAKER) (test code = 652) CALCIUM (BEAKER) 9.3 mg/dL 8.4-10.2 (test code = 697) EGFR (BEAKER) 67 Interpretatio n of eGFR (test code = mL/min/1.73 values Stage De scription 1092) sq m Result G1 Marga l or high >=90 G2 Mildly decreased 60-89 G3a Mildl y to moderately 45-5 9 G3b Moderately to s everely 30-44 G4 Severl y decreased 15-29 G5 Kidney failure <15Reported eGF R is based on the CKD-EPI 2021 equation that d oes not use a race coefficientEsti mated GFR is not as accur ate as Creatinine Love conchis in predicting glom erular filtration rate . Estimated GFR is not appl icable for dialysis patien ts RAD, CHEST, 2 [id number] 11:24:00Reason for exam:->SHORTNESS OF BREATH [facility] : 1945 Sex: FFINAL REPORT EXAM: PA and lateral views of the chest. COMPARISON: Chest radiograph 12/01/2022 available at [facility] PACS system. CT heart 02/05/2020 CLINICAL HISTORY: SHORTNESS OF BREATH FINDINGS: Lines/tubes: None. Lungs: The lungs are well inflated. Right middle and lower lobes are obscured and likely partially collapsed due to adjacent pleural effusion. Left lung is clear. Pleura: Large right pleural effusion. No pneumothorax. Heart and mediastinum: The cardiac silhouette is is prominent.Linear hyperlucency along the left paramediastinal region is indeterminate and may reflect displacement of the paraspinal interface due to the large contralateral effusion. Bones and soft tissues: No acute bony abnormalities. Upper abdomen: Unremarkable. IMPRESSION: Worsening now large right pleural effusion with partial collapse of the right middle and lower lobes when compared to 12/01/2022. Indeterminate linear hyperlucency to the left of the spine may reflect displaced paraspinal line interface due to contralateral pleural effusion. Recommend follow-up 1-2 weeks. Signed: Alondra Donohue Verified Date/Time: 12/05/2022 11:24:06 Reading Location: [facility] Reading Room [address] [place] [address] CT, EXTREMITY, LOWER, WITHOUT / WITH IV CONTRAST, [id number] 10:40:00Dual energy CT of Left foot, differential gout vs pseudogout vs some other etiologySt. LukesAnesthesia:->NonePlease specify:->FootFINAL REPORT EXAM: CT left foot WITHOUT and WITH contrast INDICATION: Localizedswelling of the left foot. Left-sided pain. Gout versus pseudogout. Radiographs February 02, 2020 COMPARISON: None.TECHNIQUE: Left foot was scanned utilizing a multidetector helical scanner from the iliac crest to the pubic symphysis before and after administration of IV contrast. Coronal and sagittal reformations were obtained. Routine protocol was performed. Scan was performed when during portal venous phase. IV CONTRAST: 100 mL of Isovue-300 ORAL CONTRAST: None COMPLICATIONS: None RADIATION DOSE: Total DLP: 541 mGy*cm Estimated effective dose: (DLP x 0.015 x size factor) mSv CTDIvol has been reviewed. It is below the limits set by the Radiation Protocol Committee (RPC). Dose modulation, iterative reconstruction and weight based adjustment of the MA/KV was utilized to reduce the dose to as low as reasonably achievable. FINDINGS: No acute fracture, subluxation or avascular necrosis. Small bone island in the posterior talar dome region. Scattered degenerative change most pronounced at the first metatarsophalangeal joint with joint space narrowing, subchondral cystic change and subchondral sclerosis. Bipartite tibial and fibular sesamoid bones. Erosive change at the medial aspect of the distal first metatarsal with adjacent soft tissue swelling and ill-defined amorphous soft tissue calcification. Findings best seen on axial image 70 through 73. No radiopaque foreign body. Small accessory navicular bone. No abnormal enhancing soft tissue masses. The visualized muscles are normal in size and morphology. IMPRESSION: 1.Erosive change at the medial aspect of the distal first metatarsal with adjacentsoft tissue swelling and ill-defined amorphous soft tissue calcification. Findings best seen on axial image 70 through 73. Findings most consistent with gout in the appropriate clinical context. Signed: Delfino Ariza MDReport Verified Date/Time: 03/25/2020 10:40:14 CT, CTA CORONARY, W/ TIFFANY [id number] 11:52:00Attn no CALCIUM SCORINGAddendum BeginsREPORT STATUS:A ADDENDUM: Study reviewed by radiology. Agree with the nonvascular findings as described below except for one correction. Correction - no significant adenopathy is identified in the mediastinum. Signed: Fracisco Stokes MDReport Verified Date/Time: 02/06/2020 11:52:58 Reading Location: [place] [address] Angio Body Reading RoomAddendum EndsFINAL REPORT CT coronary angiography, 05-Feb-20 INDICATION: This is a pleasant 74 years old lady, with abnormal stress test, presents for assessment. TECHNIQUE: Spiral acquisition before and during intravenous contrast administration using a Vargas multidetector CT scanner. Multi-planar 3-D volume-rendering reconstruction was performed using an independent workstation interactively by the interpreting physician as well as the 3-D specialist for optimal visualisation of the coronary anatomy. Consecutive thin slices (< 1mm) were obtained. The referring doctor was kind enough to provide be the beta-blockade. Arrival heart rate was 65 bpm. High rate increases after nitroglycerin administration. Medication administration: Oral metoprolol 25 mg;IV metoprolol 15 mg;S/L nitroglyercin 0.4 mg. Please refer to the contrast sheet scanned in the EPIC system for the amount and route of contrast given. This exam was performed according to our departmental dose-optimisation programme, which includes automated exposure control, adjustment of the mA and/or kV according to patient size and/or use of iterative reconstruction technique. Dose modulation, iterative reconstruction, and/or weight based adjustment of the mA/kV was utilized to reduce the radiation dose to as low as reasonably achievable. FINDINGS: VASCULAR: The thoracic aorta is normal in course, calibre, contour. Calcification is seen in the descending thoracic aorta. No ectasia or aneurysmal dilation is seen. There is no acute aortic pathology, specifically, there is no dissection, contained rupture, and intramural hematoma. The arch vessel b ranching pattern is normal. Nonobstructive calcification is seen in the takeoff of the left subclavian artery. The central pulmonary artery is normal in calibre. Left ventricle is normal in size. No mitral annular calcification is seen and no aortic valve calcification is present. There is normal atrio- ventricular and ventriculo-arterial concordance, and systemic and pulmonary venous return. No pericardial effusion is noted. Calcium score and high- resolution, ECG synchronized computed tomography of the heart with attention to the coronary arteries was performed. Coronary calcification was analyzed using the WARSTUFF system software. These are the results of the calcium score evaluation (threshold = 130 HU): LM: = 0 LAD: = 48 LCX: = 0 RCA: = 0 Agatston: = 48 Reference ranges for calcium scores are provided as follows (Tellez Clin Proc 1999; 74: 243-252): 0-10: minimal calcium 11-100: mild calcium 101-400 moderate calcium > 400 significant calcium The calcium score places patient between 50th to 75th percentile for her age group, using the PALMER database. The coronary arteries have normal origins. The left main coronary artery arises from the left sinus of Valsalva and give rise to the left anterior descending of the left circumflex arteries in the normal fashion. The right coronary artery arises from the right sinus of Valsalva. The left main coronary artery is widely patent. The proximal LAD is remarkable for focal calcification that is eccentrically located with positiveremodeling, with only minimal luminal irregularities identified. Remainder of the the proximal LAD is unremarkable. In the mid LAD, the minimum luminal diameter is 2.3 x 1.6 mm with a cross-sectional area of 2.8 sq mm, when compared to a normal looking segment of 3.4 x 2.3 mm with cross-sectional area6.0 sq mm welt maker to 56% reduction in cross-sectional area of 36% reduction in diameter suggesting nonobstructive disease. Remainder of the the mid LAD is unremarkable. The distal LAD is also unremarkable. The first diagonal artery is a small calibre vessel. The left circumflex artery is also widely patent in the proximal and mid segment, and this is a nondominant vessel.. Two small OM branches are seen that are widely patent proximally. The right coronary artery is a dominant vessel. It is widely patent throughout its course. Its gives rise to an acute marginal artery. It continues distally as the posterior descending artery. The PDA and a PL branch are small in calibre. NON-VASCULAR: Hypodensity is identified in the left thyroid lobe, the proximal 1.8 cm in diameter. This is located at image9. Dedicated thyroid ultrasound scan should be performed for further tissue characterisation. The chest wall and mediastinum appears unremarkable. Bilateral breast implants are seen. Significant adenopathy is identified in the mediastinum. In the lung windows, no endobronchial lesion is seen, and no pl eural effusions identified. Dependent changes are seen in the lung bases. Some subsegmental atelectatic changes are seen. Apical scarring is noted. Dependent changes are seen in the lung bases. Some subsegmental atelectatic changes are noted. Adjacent to the left heart border, image 29, the left lowerlobe, a 5 - 6 mm noncalcified nodule is present. Limited images of the upper abdomen reveals no gross abnormality. No acute bony pathology is identified. Mild degenerative changes is noted. Conclusion:1. Quantitative coronary artery Agatston score of 48. Small focal calcification is identified in theproximal LAD. The calcium score places patient between 50th to 75th percentile for her age group, using the PALMER database. 2. Normal coronary artery origins. The left main coronary artery, the LCx, andthe RCA are widely patent with no obstructive lesion identified. Small focal calcification is seen in the proximal LAD with luminal irregularities identified. Nonobstructive atherosclerosis is also identified in the mid LAD, and by multiplanar reformation, there is 30-40% reduction in diameter indicating no obstructive disease is present. Remainder of the mid LAD is unremarkable. The distal LAD is unremarkable. Please kindly see snapshot for details. 3. No acute pulmonary pathology. A 5-6 mm nodule is identified in the left lower lobe as described above. Professional society recommendation as follows Nodule Size <6 mm Low-Risk Patient: No routine follow-up Nodule Size <6 mm High-Risk Patient: Optional CT at 12 months 4. Normal thoracic aorta. 5. Other findings as described above. Hypodensity is identified in the left thyroid lobe, of approximately 1.8 cm. This is located at image 9. Dedicated thyroid ultrasound scan should be performed for further tissue characterisation. 5. The non-vascular findings will be reviewed by the Chief Design Drafter Radiologist and addendum will be added as needed. Signed: Cezar Diaz Verified Date/Time: 02/06/2020 07:39:07 Reading Location: [place] [address] [address] Reading Room -[id number] 12:25:00 Test Item Value Reference Range Interpretation Comments POC-CREATININE 0.9 mg/dL 0.6-1.3 : TESTED AT [facility] (test [address] code = 1859) [place], [address]: Supervisor Adult Education/Techni tami ID = [id number] for LAZARA BUENROSTRO POC-EGFR ([place]) 62 mL/min/1.73M2 (test code = 1860) - MAMMO SCR CAD [id number] 14:17:00Patient Name: HIPOLITO GALEAS Unit No: [id number] EXAMS: CPT CODE: [id number] [place] [address] Clinical History: Z12.31 Annual examination. The patient has no complaints. Comparison: Comparison is made with previous studies of 02/16/2014, 06/08/2015 and 08/07/2016. Technique: CC and MLO views of the bilateral breasts as well as bilateral implant displaced views were obtained. Location: W1 Findings: Both breasts are composed of heterogeneous soft tissues. The bilateral breast implants appear intact. An occasional benign-appearing punctate and coarse calcification is seen in each breast. There are no suspicious masses, calcifications or architectural distortion in either breast. There has been no significant interval change. Computer Aided Detection (CAD) using Second Look 7.2-H was utilized in inter pretation of this exam. IMPRESSION: No mammographic evidence of malignancy. RECOMMENDATION: Routineannual screening mammography in 1 year is recommended. CATEGORY: ACR-2 BENIGN RECOMMENDATION: FOLLOW-UP ONE YEAR FOR INTERNAL CODING PURPOSES ONLY RESULT CODE: 2 FOLLOW UP: N ACR Accreditation FDA Certified Board Certified Radiologists (ARRT) Registered Mammography Technologists NOTE: Name: HIPOLITO GALEAS [facility] OP Imaging Phys: LAUREN SOLIS : 1945 Age: 73 Sex: F [place], [place] Loc: AkashMAMExam Date: 02/27/2019 Status: DEP CLI PH: FAX: PAGE 1 Signed Report (CONTINUED) Patient Name: HIPOLITO GALEAS Unit No: [id number] EXAMS: CPT CODE: [id number] [place] [address] (Continued) 1. A negative x-ray report should not delay biopsy if a dominant or clinically suspicious mass is present. 4 to 8% of cancers are not identified by x-ray. 2. A negative report may reinforce clinical impression. 3. Adenosis and dense breast may obscure an underlying neoplasm. 4. False positive results average 6 to 10%. at 1417 Reported and signed by: Poncho Scott MD CC: LAUREN ROBERTS Technologist: Melissa Lin Trscr Dt/Tm: 03/07/2019 (1417) by:[email or web address] Printed Date/Time: 03/07/2019 (1420) Name: HIPOLITO GALEAS [facility] OP Imaging Phys: LAUREN SOLIS : 1945 Age: 73 Sex: F [place], [place] Loc: PMikeJOSEY Exam Date: 02/27/2019 Status: DEP CLI PH: FAX: PAGE 2 Signed Report- DXA BD NEREYDA W VERT [id number] 13:33:00Patient Name: HIPOLITO GALEAS Unit No: [id number] EXAMS: CPT CODE: [id number] DXA BD NEREYDA W VERT ASSESS [id number] EXAMINATION: - DXA BD NEREYDA W VERT ASSESS. LOCATION: W1. HISTORY: Z13.820/SCREENING. COMPARISON: Bone densitometry dated 08/07/2016. FINDINGS: Bone densitometry of the lumbar spine and both hips was performed, demonstrating a T-score of -1.2 in the lumbar spine. The T-score in the right hip is -0.8, and the T-score in the left hip is -1.4. IMPRESSION: The T-scores in the lumbar spine and left hip correspond to osteopenia with increased risk of fractures. The T score in the right hip is within normallimits. The World Health Organization (WHO) classifies bone density as Normal (T score at or greaterthan -1.0), Osteopenia (T score between -1.0 and -2.5), or Osteoporosis (T score at or lower than -2.5). at 2200 Reported and signed by: TOBIAS WOOD M.D. CC: LAUREN ROBERTS Technologist: Melissa Lin Trscr Dt/Tm: 02/27/2019 (8119) by:[email or web address] Printed Date/Time: 02/27/2019 (7584) Name: HIPOLITO GALEAS [facility] OP Imaging Phys: LAUREN JUNE : 1945 Age: 73 Sex: F [place] Loc: P.JOSEY Exam Date: 02/27/2019 Status: REG CLI PH: FAX: PAGE 1 Signed Report
[2022-12-29 16:46] LABS: Hematocrit 34.3 % (36.0-45.0); Lymphocytes % 12.3 % (15.3-44.8); MCV 89.6 fL (80-100); MPV 6.3 fL (7.6-11.3); Protime INR 1.14; RBC Red Blood Cell Count 3.83 M/uL (3.86-4.86)
[2022-12-29 16:53] LABS: Potassium 3.8 mEq/L (3.5-5.1)
--- NOTE | 2022-12-29 17:06 | RAD REPORT ---
EXAM DESCRIPTION: CT - Thorax Wo Con - 12/29/2022 4:39 pm CLINICAL HISTORY: sob, history of pleural effusion COMPARISON: No comparisons TECHNIQUE: Axial thin cut images of the chest were obtained without IV contrast. Multiplanar reforma ts were generated and reviewed. All CT scans are performed using dose optimization technique as appropriate and may include automated exposure control or mA/KV adjustment according to patient size. FINDINGS: Small to moderate residual right pleural effusion, with undulating components along the la teral aspect of the major fissure, and minor fissure, as well as the posterosuperior medial pleural s pace, suggesting elements of loculation. Segmental airspace opacities at the basal right lower lobe, as well as airspace opacities medially along the right middle and apical right upper lobes, nonspecif ic, and could reflect atelectasis, regions of airspace disease, or sequelae of prior treatment. Mild patchy ground-glass opacification as well as bronchial wall thickening in the lower lobe as well. No pneumothorax. No abnormal mediastinal or hilar masses or lymphadenopathy seen. No significant aortic or pulmonary a rtery findings. Assessment is limited in the absence of IV contrast. No chest wall mass or abnormal axillary lymphadenopathy. Nonspecific fat stranding in the anterior me diastinum is noted. Evaluation of the solid abdominal structures reveals no suspicious findings. Linguine sign within the right breast implant, suggesting intracapsular rupture. IMPRESSION: Residual small to moderate right pleural effusion with evidence of loculation. Airspace opacities throughout the right lung, some of which are dependent, while others present along the medial right upper and right middle lobe, in addition to patchy right lower lobe ground-glass op acities with bronchial wall thickening, are indeterminate, and could reflect residual airspace diseas e. Nonspecific fat stranding in the anterior mediastinum, could relate to extension from adjacent pleuri tis as well.
--- NOTE | 2022-12-29 18:05 | ER ---
Nurse's Notes [facility] Name: Rosemary Liu Age: 77 yrs Sex: Female : 1945 Arrival Date: 12/29/2022 Time: 15:31 Bed 7 Private MD: Diagnosis: Pleural effusion Presentation: 12/29 15:54 Chief complaint: Patient states: Discharged from [facility] 12/11/2022 for ld1 pleural effusion - pt reports recent thoracentesis with chest tube. C/O shortness of breath, denies pain. Coronavirus screen: At this time, the client does not indicate any symptoms associated with coronavirus-19. Ebola Screen: No symptoms or risks identified at this time. Initial Sepsis Screen: Does the patient meet any 2 criteria? No. Patient's initial sepsis screen is negative. Does the patient have a suspected source of infection? No. Patient's initial sepsis screen is negative. Risk Assessment: Do you want to hurt yourself or someone else? Patient reports no desire to harm self or others. Onset of symptoms was December 29, 2022. 15:54 Method Of Arrival: Ambulatory ld1 15:54 Acuity: VIRIDIANA 3 ld1 Triage Assessment: 15:56 General: Appears in no apparent distress. comfortable, Behavior is calm, cooperative, ld1 appropriate for age. Pain: Denies pain. EENT: No signs and/or symptoms were reported regarding the EENT system. Neuro: Level of Consciousness is awake, alert, obeys commands, Oriented to person, place, time, situation. Cardiovascular: Capillary refill < 3 seconds Patient's skin is warm and dry. Rhythm is sinus rhythm. Respiratory: Airway is patent Respiratory effort is even, unlabored. Respiratory: Reports shortness of breath. GI: Abdomen is flat, non-distended. : No signs and/or symptoms were reported regarding the genitourinary system. Derm: No signs and/or symptoms reported regarding the dermatologic system. Musculoskeletal: No signs and/or symptoms reported regarding the musculoskeletal system. Historical: - Allergies: 15:56 No Known Allergies; ld1 - PMHx: 15:56 Hypertensive disorder; Hypercholesterolemia; ld1 - PSHx: 15:56 None; ld1 - Immunization history:: Adult Immunizations up to date, Client reports receiving the 2nd dose of the Covid vaccine. - Social history:: Smoking status: Patient denies any tobacco usage or history of. Patient/guardian denies using alcohol. Screenin:56 [facility] ED Fall Risk Assessment (Adult) History of falling in the last 3 months, ld1 including since admission No falls in past 3 months (0 pts). Abuse screen: Denies threats or abuse. Denies injuries from another. Nutritional screening: No deficits noted. Tuberculosis screening: No symptoms or risk factors identified. Assessment: 15:56 Reassessment: See triage assessment. ld1 17:00 Reassessment: No changes from previously documented assessment. Patient and/or family mb9 updated on plan of care and expected duration. Pain level reassessed. Patient is alert, oriented x 3, equal unlabored respirations, skin warm/dry/pink. 18:00 Reassessment: No changes from previously documented assessment. Patient and/or family mb9 updated on plan of care and expected duration. Pain level reassessed. Patient is alert, oriented x 3, equal unlabored respirations, skin warm/dry/pink. Vital Signs: 15:54 BP 145 / 81; Pulse 99; Resp 16; Temp 97.9(O); Pulse Ox 98% on R/A; Weight 53.98 kg; ld1 Height 5 ft. 6 in. ; Pain 0/10; 16:57 BP 135 / 52; Pulse 83; Resp 18; Pulse Ox 97% on R/A; ld1 17:36 BP 148 / 57; Pulse 87; Resp 18; Pulse Ox 97% on R/A; mb9 15:54 Body Mass Index 19.21 (53.98 kg, 167.64 cm) ld1 15:54 Pain Scale: Adult ld1 ED Course: 15:36 Patient arrived in ED. im 15:36 Esequiel Nicole PA is PHCP. [facility] 15:36 Arnoldo Best MD is Attending Physician. jm 15:45 Lore Gardner, DAI is Primary Nurse. ld1 15:56 Triage completed. ld1 15:56 Arm band placed on right wrist. EKG completed in triage. Results shown to MD. ld1 15:56 Patient has correct armband on for positive identification. Placed in gown. Bed in low ld1 position. Call light in reach. Side rails up X2. journeyman electrician on. Pulse ox on. NIBP on. Door closed. Noise minimized. Warm blanket given. 15:56 No provider procedures requiring assistance completed. ld1 16:24 PT-INR Sent. mb9 16:24 Troponin High Sensitivity Sent. mb9 16:24 BMP Sent. mb9 16:24 CBC with Diff Sent. mb9 16:24 Inserted saline lock: 22 gauge in left antecubital area, using aseptic technique. mb9 16:40 CT Chest Wo Con In Process Unspecified. EDMS 18:07 IV discontinued, intact, bleeding controlled, No redness/swelling at site. Pressure mb9 dressing applied. Administered Medications: No medications were administered Medication: 15:56 VIS not applicable for this client. ld1 Outcome: 18:03 Discharge ordered by . ezra 18:07 Discharged to home ambulatory. mb9 18:07 Condition: stable 18:07 Discharge instructions given to patient, Instructed on discharge instructions, follow up and referral plans. Demonstrated understanding of instructions, follow-up care. 18:31 Patient left the ED. ld1 Signatures: Dispatcher [employer] EDMS Esequiel Nicole PA PA jmm Sims, Lauren, RN RN ld1 Rosemary Magaña, RN RN mb9 Lyn Alvarez
--- NOTE | 2022-12-29 18:05 | EDPHYS ---
Physician Documentation [facility] Name: Rosemary Liu Age: 77 yrs Sex: Female : 1945 Arrival Date: 12/29/2022 Time: 15:31 Bed 7 Private MD: ED Physician Arnoldo Best HPI: 12/29 15:46 This 77 yrs old Female presents to ER via Ambulatory with complaints of Pleural jmm effusion. 15:46 This is a 77-year-old female with history of hypertension hyperlipidemia the presents jmm emerged part with complaints of shortness of breath. Patient was recently hospitalized for a large pleural effusion. Patient had a chest tube inserted. Was discharged with oral antibiotics. Denies fever but is concerned she might be developing a large pleural effusion again. Denies hemoptysis. Denies leg swelling.. Historical: - Allergies: 15:56 No Known Allergies; ld1 - PMHx: 15:56 Hypertensive disorder; Hypercholesterolemia; ld1 - PSHx: 15:56 None; ld1 - Immunization history:: Adult Immunizations up to date, Client reports receiving the 2nd dose of the Covid vaccine. - Social history:: Smoking status: Patient denies any tobacco usage or history of. Patient/guardian denies using alcohol. ROS: 15:46 Constitutional: Negative for fever, chills, and weight loss, Cardiovascular: Negative jmm for chest pain, palpitations, and edema. 15:46 Respiratory: Positive for cough, shortness of breath. 15:46 All other systems are negative. Exam: 15:46 Constitutional: This is a well developed, well nourished patient who is awake, alert, jmm and in no acute distress. Head/Face: atraumatic. Eyes: EOMI, no conjunctival erythema appreciated ENT: Moist Mucus Membranes Neck: Trachea midline, Supple Chest/axilla: Normal chest wall appearance and motion. Cardiovascular: Regular rate and rhythm. No edema appreciated Respiratory: Normal respirations, no respiratory distress appreciated Abdomen/GI: Non distended Back: Normal ROM Skin: General appearance color normal MS/ Extremity: Moves all extremities, no obvious deformities appreciated, no edema noted to the lower extremities Neuro: Awake and alert Psych: Behavior is normal, Mood is normal, Patient is cooperative and pleasant Vital Signs: 15:54 BP 145 / 81; Pulse 99; Resp 16; Temp 97.9(O); Pulse Ox 98% on R/A; Weight 53.98 kg; ld1 Height 5 ft. 6 in. ; Pain 0/10; 16:57 BP 135 / 52; Pulse 83; Resp 18; Pulse Ox 97% on R/A; ld1 17:36 BP 148 / 57; Pulse 87; Resp 18; Pulse Ox 97% on R/A; mb9 15:54 Body Mass Index 19.21 (53.98 kg, 167.64 cm) ld1 15:54 Pain Scale: Adult ld1 MDM: 15:46 Patient medically screened. [facility] 15:46 Data reviewed: vital signs, nurses notes. I considered the following discharge [facility] prescriptions or medication management in the emergency department Medications were administered in the Emergency Department. See MAR. Independent interpretation of the following test(s) in the Emergency Department. External Records Reviewed: Inpatient record: Notes from hospitalization at [facility] the [facility] reviewed. Counseling: I had a detailed discussion with the patient and/or guardian regarding: the historical points, exam findings, and any diagnostic results supporting the discharge/admit diagnosis, lab results, radiology results, the need for outpatient follow up, to return to the emergency department if symptoms worsen or persist or if there are any questions or concerns that arise at home. 18:04 ED course: Patient denies hemoptysis, vital signs within normal limits. Denies leg [facility] swelling. I do not currently suspect pulmonary embolism. CT noncontrast revealed small-moderate pleural effusion which most likely explains the patient's shortness of breath. I did discuss the possibility of pulmonary embolism. Patient declined CT with contrast and will return to the ED if she develops any worsening symptoms.. 12/29 15:45 Order name: CBC with Diff; Complete Time: 16:54 [facility] 12/29 15:45 Order name: BMP; Complete Time: 16:54 [facility] 12/29 15:54 Order name: Troponin High Sensitivity; Complete Time: 17:45 [facility] 12/29 15:54 Order name: PT-INR; Complete Time: 16:47 [facility] 12/29 15:45 Order name: CT Chest Wo Con; Complete Time: 17:13 [facility] 12/29 15:45 Order name: Saline Lock; Complete Time: 16:24 [facility] 12/29 15:57 Order name: EKG - Nurse/Tech; Complete Time: 15:57 ld1 Administered Medications: No medications were administered Disposition Summary: 12/29/22 18:03 Discharge Ordered Location: Home [facility] Condition: Stable jmm Diagnosis - Pleural effusion [facility] Followup: [facility] - With: Private Physician - When: 2 - 3 days - Reason: Recheck today's complaints, Continuance of care, Re-evaluation by your physician Discharge Instructions: - Discharge Summary Sheet [facility] - Pleural Effusion [facility] Forms: - Medication Reconciliation Form [facility] - Thank You Letter [facility] - Antibiotic Education [facility] - Prescription Opioid Use [facility] Addendum: 01/01/2023 09:03 Co-signature as Attending Physician, Arnoldo Best MD I reviewed the patient's care r t provided by the Advanced Practice Provider and agree with the diagnosis and treatment plan. Signatures: Dispatcher [employer] Esequiel Archuleta PA PA jmm Sims, Lauren, DAI RN ld1 Arnoldo Best MD MD rt
[2022-12-29 18:46] VITALS: TEMP 97.9
[2022-12-29 18:48] VITALS: O2SAT 97
[2022-12-29 18:50] VITALS: BP 148/57
--- NOTE | 2023-01-01 10:19 | EKG ---
Test Date: 2022-12-29 Test Time: 15:49:13 Stockroom Clerk: Paulino VAN MEASUREMENT RESULTS: Intervals: Rate: 92 NM: 158 QRSD: 124 QT: 386 QTc: 477 [place]: P: 0 NM: 158 QRS: 107 T: -14 INTERPRETIVE STATEMENTS: Sinus rhythm with marked sinus arrhythmia Rightward axis Anterior infarct, age undetermined ST & T wave abnormality, consider inferolateral ischemia Abnormal ECG No previous ECG available for comparison Electronically Signed On 01-01-23 10:14:18 CDT by Dawson Olivares
== END 2022-12-29 18:31 | disposition home or self-care (01) ==
LOC: ER 15:31
DX: J90 Pleural effusion, not elsewhere classified (principal); I10 Essential (primary) hypertension; E78.00 Pure hypercholesterolemia, unspecified
CPT/HCPCS: 36415; 71250; 80048; 84484; 85025; 85610; 93005; 99284